=== PATIENT | female | born 1965 | race African-American/Black ===

== ENCOUNTER 2017-06-30 21:13 | Emergency (ER) | payer MEDICARE, MEDICAID ==
[2017-06-30 21:48] LABS: #Eosinphils 0.2 thou/uL (0.0-0.7); #Monocytes 0.4 thou/uL (0.11-0.59); #Neutrophils 2.7 thou/uL (1.40-6.50); %Basophils 0.3 % (0.0-1.0); %Eosinophils 4.9 % (0.0-10.0); %Lymphocytes 23.3 % (21.0-51.0); %Monocytes 9.6 % (0.0-10.0); Hematocrit 41.7 % (36.0-47.0); Mean Platelet Volume 7.8 fL (7.4-10.4); Red Blood Cell (RBC) Count 4.63 mill/uL (4.20-5.40); White Blood Cell (WBC) Count 4.4 thou/uL (4.8-10.8)
[2017-06-30 22:09] LABS: ALT (SGPT) 7 U/L (8-55); AST (SGOT) 13 U/L (5-34); Alkaline Phosphatase 116 U/L (40-150); Anion Gap 10 mmol/L (10-20); BUN (Urea Nitrogen) 16 mg/dL (9.8-20.1); Bilirubin, Total 0.4 mg/dL (0.2-1.2); Calc. Creatinine Clearance 0 mL/min (70-130); Calcium 8.7 mg/dL (7.8-10.44); Carbon Dioxide 29 mmol/L (22-29); Chloride 106 mmol/L (98-107); Estimated GFR-MDRD 90; Lipase 15 U/L (8-78); Protein, Total 7.6 g/dL (6.0-8.3)
[2017-06-30] MEDS ORDERED: Ondansetron HCl/PF 4 MG/2 ML Vial ONE (22:32)
--- NOTE | 2017-06-30 22:36 | RAD ---
PA AND LATERAL CHEST: Indication: History of cough, vomiting up food. The patient is afebrile. Comparison: 05-10-16 FINDINGS: The cardiomegaly and perihilar fullness is stable. The perihilar interstitial opacities are stable. No new airspace consolidation or pleural effusion is evident. Dual-lead pacemaker overlying the left chest wall is stable. No acute osseous abnormality is evident. IMPRESSION: 1. No acute abnormality demonstrated. 2. Chronic findings as above. POS: SHANE
[2017-06-30 22:39] LABS: Troponin I Less than 0.010 ng/mL (< 0.028)
[2017-06-30 23:20] LABS: Bilirubin Negative (Negative); Blood, Urine Negative (Negative); Glucose, Urine (Dipstick) Negative (Negative); Ketone, Urine Negative (Negative); Nitrite Positive (Negative); Protein, Urine (Dipstick) Negative (Neg-Trace)
[2017-06-30 23:24] LABS: Bacteria/HPF 3+ HPF (None Seen); Hyaline Casts/LPF 0-3 HYALINE CAST LPF (0-3 Hyaline); RBC/HPF 0-3 HPF (0-3); Squamous Epithelial 0-3 HPF (0-3)
[2017-06-30] MEDS ORDERED: Clopidogrel Bisulfate 75 MG TAB ONE (23:25)
[2017-06-30] MEDS ORDERED: methylPREDNISolone Sod Succ/PF 125 MG/2 ML VIAL ONE (23:25)
== END 2017-07-01 00:32 | disposition home or self-care (01) ==
LOC: ERS 21:13
DX: J44.9 Chronic obstructive pulmonary disease, unspecified (principal); N39.0 Urinary tract infection, site not specified; E11.9 Type 2 diabetes mellitus without complications; E66.9 Obesity, unspecified; I11.0 Hypertensive heart disease with heart failure; I50.9 Heart failure, unspecified; F41.9 Anxiety disorder, unspecified; F32.9 Major depressive disorder, single episode, unspecified; Z87.891 Personal history of nicotine dependence; Z79.899 Other long term (current) drug therapy
CPT/HCPCS: 36415; 71020; 80053; 81003; 81015; 81025; 82553; 83690; 83880; 84484; 85025; 93005; 96374; 96375; J2405; J2930; J7620

== ENCOUNTER 2018-06-25 21:23 | Inpatient (IN) | payer MEDICARE, MEDICAID ==
[2018-06-25] MEDS ORDERED: Albuterol Sulfate 2.5 mg/3 ml Neb ONE ×2 (21:48)
[2018-06-25 22:03] LABS: Actual Bicarbonate (HCO3a) 26.3 mEq/L (22-28); Analyzer IN Cardio ER; Base Excess (BEa) 0.6 mEq/L (-2.0 to +3.0); CO2 Tension 46.7 mmHg (35.0-45.0); Calcium, Ionized 1.14 mmol/L (1.12-1.30); Carboxyhemoglobin (COHb) 0.6 gm% (0.0-3.0); Hemoglobin (Hb) 12.1 g/dL (12.0-16.0); O2 Tension (PaO2) 166.7 mmHg (80.0-100.0); Potassium - ABG Lab 3.61 mmol/L (3.70-5.30); pH, Arterial 7.37 (7.35-7.45)
[2018-06-25 22:08] LABS: Puncture Site RRA
[2018-06-25 22:09] LABS: ALV-art Gradient -75.345 (0-20)
[2018-06-25] MEDS ORDERED: Dexamethasone 4 mg/ml Vial ONE (22:12)
[2018-06-25 22:13] LABS: Hemoglobin 12.4 g/dL (12.0-16.0); Mean Corpuscular HGB CONC 31.5 g/dL (32.0-36.0); Mean Corpuscular Hemoglobin 26.5 pg (27.0-31.0); Mean Corpuscular Volume 84.3 fL (78.0-98.0); Mean Platelet Volume 7.6 fL (7.4-10.4); Platelet Count 388 thou/uL (130-400); RBC Distribution Width 14.7 % (11.5-14.5); Red Blood Cell (RBC) Count 4.67 mill/uL (4.20-5.40); White Blood Cell (WBC) Count 5.8 thou/uL (4.8-10.8)
[2018-06-25] MEDS ORDERED: Magnesium 2 GM/50 ML BAG (IN WATER) ONE (22:24)
[2018-06-25 22:37] LABS: Band 1 % (5-11); Lymphocytes 15 % (21-51); MDiff Complete? YES; Monocytes 6 % (0-10); Neutrophil 78 % (42-75)
[2018-06-25 22:39] LABS: ALT (SGPT) Less than 7 U/L (8-55); AST (SGOT) 14 U/L (5-34); Albumin 3.7 g/dL (3.5-5.0); Alkaline Phosphatase 86 U/L (40-150); Anion Gap 17 mmol/L (10-20); BUN (Urea Nitrogen) 13 mg/dL (9.8-20.1); Bilirubin, Total 0.7 mg/dL (0.2-1.2); CK (CPK) 73 U/L (29-168); Calc. Creatinine Clearance 0 mL/min (70-130); Calcium 9.2 mg/dL (7.8-10.44); Carbon Dioxide 28 mmol/L (22-29); Chloride 98 mmol/L (98-107); Estimated GFR-MDRD Greater than 90; Globulin 4.5 g/dL (2.4-3.5); Glucose 90 mg/dL (70-105); Lipase 9 U/L (8-78); Potassium 3.8 mmol/L (3.5-5.1); Protein, Total 8.2 g/dL (6.0-8.3); Sodium 139 mmol/L (136-145)
[2018-06-25 22:42] LABS: CKMB 2.3 ng/mL (0-6.6); Troponin I Less than 0.010 ng/mL (< 0.028)
--- NOTE | 2018-06-25 23:36 | RAD ---
PORTABLE AP CHEST X-RAY 06/25/18 HISTORY: Dyspnea. Difficulty breathing. Nausea. Chest pain. COMPARISON: 06/30/17. FINDINGS: A dual lead left subclavian cardiac pacemaking device remains in place and unchanged in position. Car diac silhouette is magnified by projection but is probably mildly enlarged. Again noted are increase in perihilar interstitial and alveolar opacities. Findings may potentially be chronic in origin, but element of mild pulmonary edema or infectious process is a possibility. There is greater patchy paren chymal changes in the retrocardiac region of the left lung base. No pleural effusion is seen. There h as been no interval change compared to prior studies. IMPRESSION: Increase in perihilar interstitial and alveolar opacities, greater in the retrocardiac region left nati ng base. Findings could be related to infectious process or asymmetric pulmonary edema. Followup to rita gomez is recommended. POS: JOSE
[2018-06-25] MEDS ORDERED: Bisacodyl 5 MG TAB PO PRN (23:51)
[2018-06-25] MEDS ORDERED: Acetaminophen 650 MG Suppository PR PRN (23:51)
[2018-06-26] MEDS ORDERED: Furosemide 20 MG/2 ML VIAL SLOW IVP SCH (00:15)
--- NOTE | 2018-06-26 00:31 | HP ---
PRIMARY CARE PROVIDER: None. CHIEF COMPLAINT: Shortness of breath. HISTORY OF PRESENT ILLNESS: Ms. Enrique is a pleasant 53-year-old lady was seen at [facility] on 06/25/2018. She reports that she was nauseous yesterday. Today, she started having shortness of breath. She den ies any vomiting. She reports cough for the last 3 days that is productive of whitish to yellow sput um. She also reports having fevers at home. She denies any chest pain. She reports that shortness of breath is worse with exertion. She also reports body aches. REVIEW OF SYSTEMS: All other systems reviewed and found to be negative. PAST MEDICAL HISTORY: Diabetes mellitus type 2, she reports that it resolved with weight loss, COPD, obesity, hypertension, asthma, congestive heart failure and Wernicke's encephalopathy. PAST SURGICAL HISTORY: Tonsillectomy, pacemaker, section x2, and gastric bypass surgery in 07/2016. PSYCHIATRIC HISTORY: Anxiety and depression. SOCIAL HISTORY: The patient is an ex-smoker. She denies alcohol use or recreational drug use. FAMILY HISTORY: Significant for asthma and diabetes mellitus. ALLERGIES: IBUPROFEN. CURRENT MEDICATIONS: Need to be clarified, patient appears to be on ferrous sulfate 325 mg 2 times a day, vitamin D3 1000 units daily, vitamin B12 1000 mcg daily and woman's multivitamins 1 tablet jaspal y. PHYSICAL EXAMINATION: GENERAL: On examination, Ms. Enrique is awake and alert, not in acute distress. VITAL SIGNS: Blood pressure is 126/69, pulse 82, respiratory rate 18, and oxygen saturation 94% on r oom air. She is afebrile. EYES: No scleral icterus. No conjunctival pallor. ENT: Moist mucosal membranes, no oropharyngeal erythema or exudates. NECK: Supple, nontender, trachea is midline. RESPIRATORY: Accessory muscles of breathing are not active. Chest wall movements are symmetric bila terally. LUNGS: Examination reveals diffuse expiratory wheeze. CARDIOVASCULAR: S1 and S2 are heard, regular. Peripheral pulses palpable. No pericardial rub, no c arotid bruit. NEUROLOGIC: Cranial nerves II-XII intact. Deep tendon reflexes are 2+. MUSCULOSKELETAL: Power is 5/5 in all 4 extremities. SKIN: No rashes or subcutaneous nodules. She has a trace bilateral lower extremity edema. LYMPHATIC: No cervical lymphadenopathy. PSYCHIATRIC: Normal mood, normal affect, patient is oriented to person, place, and time. IMAGING DATA AND LABORATORY DATA: Ms. Enrique' labs and investigations were reviewed. I reviewed her electrocardiogram, which shows atrial sensed ventricular paced rhythm. I also reviewed her chest x- ray, which shows perihilar interstitial and alveolar opacities. She has a normal white count, normal hemoglobin, normal platelet count, normal electrolytes, normal creatinine and unremarkable liver pro file. Lipase is normal. Troponin I and BNP are normal. Arterial blood gases show pH 7.37, pCO2 of 46.7 and pO2 166.7. ASSESSMENT AND PLAN: Ms. Enrique is a pleasant 53-year-old lady who was seen at [facility] on 06/26/2018. Her problem list includes: 1. Acute hypercapnic respiratory failure: Most likely secondary to chronic obstructive pulmonary di sease exacerbation. She will be admitted to the hospital for further management. 2. Chronic obstructive pulmonary disease exacerbation: Patient will be treated with oxygen, steroid s, bronchodilators, and antibiotics. She has received levofloxacin in the emergency room, which I wi ll continue. Pulmonology Service will be consulted for opinion and help with management. 3. Congestive heart failure. The patient has a history of congestive heart failure, but does not ap pear to be in congestive heart failure at this time. She has a normal BNP. We will have her pacemak er interrogated to find out her volume status. 4. We will also give her a 1 time dose of furosemide, given the chest x-ray findings. 5. Hypertension: Patient has a history of hypertension, but is not on any antihypertensives at this time. Her hypertension is controlled at this time. I will continue to monitor vital signs and add hypertension medications if needed. 6. Diabetes mellitus. The patient does not appear to have any diabetes at this time. She is not on any medications and her random blood glucose was 90. LEVEL OF RISK: High. LEVEL OF COMPLEXITY: High.
[2018-06-26 01:35] VITALS: BMI 28.3
[2018-06-26 04:02] LABS: Bilirubin Moderate (Negative); Blood, Urine Small (Negative); Clarity CLOUDY (Clear); Glucose, Urine (Dipstick) Negative (Negative); Leukocyte Small (Negative); Nitrite Negative (Negative); Protein, Urine (Dipstick) Negative (Neg-Trace)
[2018-06-26 04:04] LABS: Bacteria/HPF 4+ HPF (None Seen); Pathc Cast-AUWi Flag 0.29 (0-2.49); RBC/HPF 0-3 HPF (0-3)
[2018-06-26 04:22] LABS: Hyaline Casts/LPF NONE SEEN LPF (0-3 Hyaline); Renal Epithelial None Seen HPF (0-3); Transitional Epithelial NONE SEEN HPF (0-3); Trichomonas/HPF 1+ HPF (None Seen)
[2018-06-26 05:52] LABS: #Basophils 0.1 thou/uL (0.0-0.2); #Lymphocytes 0.2 thou/uL (1.20-3.40); #Neutrophils 5.7 thou/uL (1.40-6.50); %Basophils 1.2 % (0.0-1.0); %Eosinophils 0.1 % (0.0-10.0); %Lymphocytes 3.5 % (21.0-51.0); %Monocytes 0.7 % (0.0-10.0); %Neutrophils 94.5 % (42.0-75.0); Hemoglobin 12.2 g/dL (12.0-16.0); Mean Corpuscular HGB CONC 30.6 g/dL (32.0-36.0); Mean Corpuscular Hemoglobin 25.7 pg (27.0-31.0); Mean Platelet Volume 7.7 fL (7.4-10.4); Platelet Count 400 thou/uL (130-400); RBC Distribution Width 14.8 % (11.5-14.5); Red Blood Cell (RBC) Count 4.77 mill/uL (4.20-5.40)
--- NOTE | 2018-06-26 06:09 | PDOC.EVN ---
Event Note - Event Note Event Note: Urinalysis positive for trichomonas. Send uring sample for GC/Chlamydia testing , check HIV serology, administer 2 gm metronidazole.
[2018-06-26 06:24] LABS: Anion Gap 18 mmol/L (10-20); BUN (Urea Nitrogen) 12 mg/dL (9.8-20.1); Calc. Creatinine Clearance 91 mL/min (70-130); Calcium 8.7 mg/dL (7.8-10.44); Carbon Dioxide 26 mmol/L (22-29); Chloride 98 mmol/L (98-107); Estimated GFR-MDRD 87; Glucose 242 mg/dL (70-105); Potassium 4.5 mmol/L (3.5-5.1); Sodium 137 mmol/L (136-145)
[2018-06-26] MEDS ORDERED: metroNIDAZOLE 500 MG TAB PO SCH (07:00)
[2018-06-26 07:05] LABS: HIV (1/2) Antibody/Antigen Non-Reactive (NonReactive); HIV 1/2 INDEX 0.14 S/CO (<1.00)
[2018-06-26] MEDS: Enoxaparin Sodium 40 MG/0.4 ML SYRINGE SC SCH (08:07)
--- NOTE | 2018-06-26 12:02 | CON ---
DATE OF CONSULTATION: 06/26/2018 CONSULTING PHYSICIAN: Cody tomas. REASON FOR CONSULTATION: Shortness of breath. The consultation encompassed 70 minutes time. Of that time, greater than 50% was spent with the conchita ent and/or in the patient's room in the hospital. HISTORY OF PRESENT ILLNESS: This is a 53-year-old female who I have not seen in quite some time. Дмитрий shukla has a history of chronic persistent asthma and COPD. She was hospitalized yesterday with increasin g shortness of breath and productive cough. She tells me that she has had a hard time swallowing and keeping food down. She thinks this is an effect from previous gastric bypass surgery. PAST MEDICAL HISTORY: 1. Diabetes mellitus type 2. 2. Chronic obstructive pulmonary disease/asthma. 3. Congestive heart failure. 4. Warneke encephalopathy. 5. Hypertension. PAST SURGICAL HISTORY: 1. Tonsillectomy. 2. Gastric bypass. 3. x2. 4. Pacemaker placement. SOCIAL HISTORY: Quit smoking some time ago. Does not use alcohol or recreational drugs. FAMILY MEDICAL HISTORY: Remarkable for asthma and diabetes. ALLERGIES: IBUPROFEN. MEDICATIONS PRIOR TO ADMISSION: Cholecalciferol, aspirin, vitamin B12, Tudorza Pressair, Ventolin, f olate, Lasix, multivitamin, Protonix. REVIEW OF SYSTEMS: Twelve point review of systems otherwise negative except for substantial weight l oss. PHYSICAL EXAMINATION: VITAL SIGNS: Temperature 98.0, pulse 65, respiratory is 20, O2 sat 96% on 2 liters, blood pressure 1 17/73. GENERAL: She is awake and alert and in no profound distress. She is walking around the halls withou t difficulty. HEENT: Pupils react. Sclerae icteric. Oropharynx clear. NECK: No adenopathy or JVD. LUNGS: Mild end expiratory wheezing bilaterally. CARDIOVASCULAR: S1, S2 regular. ABDOMEN: Soft, nontender, nondistended. EXTREMITIES: No clubbing, cyanosis, or edema. LABORATORY DATA: ABG - pH 7.37, pCO2 46, pO2 of 166. White blood cell count 6, hematocrit 40, plate let count 400. Sodium 137, potassium 4.5, chloride 98, CO2 26, BUN 12, creatinine 0.8, glucose 242. HIV test was nonreactive. Chest x-ray shows cardiomegaly. There is a pacemaker in place. No acute infiltrates are identified. ASSESSMENT: Asthma/chronic obstructive pulmonary disease with exacerbation. RECOMMENDATIONS: 1. Schedule nebulization treatments as you are doing. 2. Steroid therapy 3. Antibiotics. 4. Low flow oxygen as needed.
[2018-06-27] MEDS: Acetaminophen 325 MG TAB PO PRN ×2 (07:08→20:36)
[2018-06-27] MEDS: Enoxaparin Sodium 40 MG/0.4 ML SYRINGE SC SCH (09:03)
--- NOTE | 2018-06-27 11:23 | EKG ---
Test Reason : DYSPNEA Blood Pressure : / mmHG Vent. Rate : 061 BPM Atrial Rate : 061 BPM P-R Int : 170 ms QRS Dur : 200 ms QT Int : 526 ms P-R-T Axes : 030 -78 099 degrees QTc Int : 529 ms Atrial-sensed ventricular-paced rhythm Abnormal ECG Confirmed by DARIEL WEI, DB ([id number]), editorial intern LUIS ENRIQUE FLORES ([id number]) on 06/27/2018 11:22:44 AM Referred By: MD VIEIRA Confirmed By:DB VIEIRA MD
[2018-06-27] MEDS: Ondansetron PF 4 MG/2 ML Vial IVP PRN ×2 (14:10→20:36)
--- NOTE | 2018-06-27 14:16 | PRG ---
DATE OF SERVICE: 06/27/2018. SUBJECTIVE: She states that she does not feel any from yesterday. She is still short of breat h and still having some stomach issues. PHYSICAL EXAMINATION: VITAL SIGNS: Temperature 97.8, pulse 68, respiration 16, O2 sat 95% on room air, blood pressure 114/ 75. HEENT: Unremarkable. NECK: No JVD. LUNGS: She has diffuse mild end expiratory wheezing. CARDIAC: S1 and S2 regular. ABDOMEN: Soft. EXTREMITIES: No edema. LABORATORY DATA: Micro shows no growth to date. No labs were obtained today. ASSESSMENT: 1. Asthma/chronic obstructive pulmonary disease with exacerbation. 2. Nausea and vomiting. RECOMMENDATIONS: 1. Continue the antibiotic, steroids and breathing treatments. 2. We would consider GI involvement for evaluation of the patient's persistent nausea and vomiting.
--- NOTE | 2018-06-27 16:41 | PDOC.PN ---
- Subjective Encounter Start Date: 06/27/18 Encounter Start Time: 10:30 Subjective: pt up in bed complains of nausea and abd cramping - Objective Vital Signs & Weight: Vital Signs (12 hours) Temp Pulse Resp BP Pulse Ox 06/27/18 14:40 71 14 95 06/27/18 09:48 68 16 95 06/27/18 08:00 95 06/27/18 07:38 97.8 F 65 16 114/75 100 06/27/18 06:08 68 18 95 Weight Admit Weight 160 lb 0.889 oz Weight 160 lb 0.889 oz I&O: 06/26/18 06/27/18 06/28/18 06:59 06:59 06:59 Intake Total 1680 Balance 1680 Result Diagrams: 06/26/18 04:45 06/26/18 04:45 Phys Exam - Physical Examination Respiratory: wheezing present Cardiovascular: RRR, no significant murmur, no rub, gallop, irregular Gastrointestinal: soft, non-tender, no distention, positive bowel sounds Musculoskeletal: no edema, pulses present, edema present Dx/Plan (1) Acute respiratory failure with hypoxia and hypercapnia Code(s): J96.01 - ACUTE RESPIRATORY FAILURE WITH HYPOXIA; J96.02 - ACUTE RESPIRATORY FAILURE WITH HYPERCAPNIA Status: Acute (2) Diabetes mellitus type 2 Code(s): E11.9 - TYPE 2 DIABETES MELLITUS WITHOUT COMPLICATIONS Status: Chronic (3) S/P gastric bypass Code(s): Z98.84 - BARIATRIC SURGERY STATUS Status: Chronic (4) hypertension Status: Active - Plan pt on steroids and abx, still has some wheezing -: will order ruq ultrasound to make sure her gallbladder is not causing any -: problems. * . Review of Systems - Review of Systems Respiratory: negative: Cough, Dry, Shortness of Breath, Hemoptysis, SOB with Excertion, Pleuritic Pain, Sputum, Wheezing Cardiovascular: negative: chest pain, palpitations, orthopnea, paroxysmal nocturnal dyspnea, edema, light headedness, other Gastrointestinal: negative: Nausea, Vomiting, Abdominal Pain, Diarrhea, Constipation, Melena, Hematochezia, Other - Medications/Allergies Allergies/Adverse Reactions: Allergies Allergy/AdvReac Type Severity Reaction Status Date / Time ibuprofen Allergy "TRIGGERS Verified 06/26/18 01:33 HER ASTHMA" Medications: Current Medications Acetaminophen (Tylenol) 650 mg PO Q4H PRN PRN Reason: Headache/Fever/Mild Pain (1-3) Last Admin: 06/27/18 07:08 Dose: 650 mg Acetaminophen (Tylenol) 650 mg [place] Q4H PRN PRN Reason: Headache/Fever/Mild Pain (1-3) Albuterol/Ipratropium (Duoneb) 3 ml NEB [id number] [facility] Last Admin: 06/27/18 14:40 Dose: 3 ml Bisacodyl (Dulcolax) 10 mg PO DAILYPRN PRN PRN Reason: Constipation Last Admin: 06/27/18 06:15 Dose: 10 mg Cholecalciferol (Vitamin D3) 1,[address] [facility] Cyanocobalamin (Vitamin B-12) 1,[address] [facility] Enoxaparin Sodium (Lovenox) [address] [facility] Last Admin: 06/27/18 09:03 Dose: 40 mg Ferrous Sulfate (Feosol) [address] [facility] Furosemide (Lasix) [address] [facility] Levofloxacin 750 mg/ Device 150 mls @ 100 mls/hr IVPB Q24HR [facility] Last Admin: 06/26/18 23:50 Dose: 150 mls Iron/Minerals/Multivitamins (Theragran M) [address] [facility] Ondansetron HCl (Zofran) 4 mg IVP Q6H PRN PRN Reason: Nausea/Vomiting Last Admin: 06/27/18 14:10 Dose: 4 mg Pantoprazole Sodium (Protonix) [address] [facility] Prednisone (Prednisone) 40 mg PO QAM-[facility]
--- NOTE | 2018-06-27 16:52 | PDOC.PN ---
- Subjective Encounter Start Date: 06/26/18 Encounter Start Time: 11:30 Subjective: pt up in bed no complains - Objective Vital Signs & Weight: Vital Signs (12 hours) Temp Pulse Resp BP Pulse Ox 06/27/18 14:40 71 14 95 06/27/18 09:48 68 16 95 06/27/18 08:00 95 06/27/18 07:38 97.8 F 65 16 114/75 100 06/27/18 06:08 68 18 95 Weight Admit Weight 160 lb 0.889 oz Weight 160 lb 0.889 oz I&O: 06/26/18 06/27/18 06/28/18 06:59 06:59 06:59 Intake Total 1680 Balance 1680 Result Diagrams: 06/26/18 04:45 06/26/18 04:45 Dx/Plan (1) Acute respiratory failure with hypoxia and hypercapnia Code(s): J96.01 - ACUTE RESPIRATORY FAILURE WITH HYPOXIA; J96.02 - ACUTE RESPIRATORY FAILURE WITH HYPERCAPNIA Status: Acute (2) Diabetes mellitus type 2 Code(s): E11.9 - TYPE 2 DIABETES MELLITUS WITHOUT COMPLICATIONS Status: Chronic (3) S/P gastric bypass Code(s): Z98.84 - BARIATRIC SURGERY STATUS Status: Chronic (4) hypertension Status: Active - Plan will continue steroids -: will continue abx -: pulm consulted * . Review of Systems - Review of Systems Respiratory: negative: Cough, Dry, Shortness of Breath, Hemoptysis, SOB with Excertion, Pleuritic Pain, Sputum, Wheezing Cardiovascular: negative: chest pain, palpitations, orthopnea, paroxysmal nocturnal dyspnea, edema, light headedness, other Gastrointestinal: negative: Nausea, Vomiting, Abdominal Pain, Diarrhea, Constipation, Melena, Hematochezia, Other - Medications/Allergies Allergies/Adverse Reactions: Allergies Allergy/AdvReac Type Severity Reaction Status Date / Time ibuprofen Allergy "TRIGGERS Verified 06/26/18 01:33 HER ASTHMA" Medications: Current Medications Acetaminophen (Tylenol) 650 mg PO Q4H PRN PRN Reason: Headache/Fever/Mild Pain (1-3) Last Admin: 06/27/18 07:08 Dose: 650 mg Acetaminophen (Tylenol) 650 mg [place] Q4H PRN PRN Reason: Headache/Fever/Mild Pain (1-3) Albuterol/Ipratropium (Duoneb) 3 ml NEB [id number] [facility] Last Admin: 06/27/18 14:40 Dose: 3 ml Bisacodyl (Dulcolax) 10 mg PO DAILYPRN PRN PRN Reason: Constipation Last Admin: 06/27/18 06:15 Dose: 10 mg Cholecalciferol (Vitamin D3) 1,000 units PO BID [facility] Cyanocobalamin (Vitamin B-12) 1,500 mcg PO DAILY [facility] Enoxaparin Sodium (Lovenox) 40 mg SC 0900 [facility] Last Admin: 06/27/18 09:03 Dose: 40 mg Ferrous Sulfate (Feosol) 325 mg PO DAILY [facility] Furosemide (Lasix) 20 mg PO DAILY [facility] Levofloxacin 750 mg/ Device 150 mls @ 100 mls/hr IVPB Q24HR [facility] Last Admin: 06/26/18 23:50 Dose: 150 mls Iron/Minerals/Multivitamins (Theragran M) 1 tab PO DAILY [facility] Ondansetron HCl (Zofran) 4 mg IVP Q6H PRN PRN Reason: Nausea/Vomiting Last Admin: 06/27/18 14:10 Dose: 4 mg Pantoprazole Sodium (Protonix) 40 mg PO BID [facility] Prednisone (Prednisone) 40 mg PO QAM-[facility]
--- NOTE | 2018-06-27 20:45 | ULT ---
SONOGRAM RIGHT UPPER QUADRANT 06/27/18 HISTORY: Right upper quadrant pain. FINDINGS: Echogenic stones are apparent within the dependent portion of the gallbladder lumen. Common duct is 0 .3 cm. Liver unremarkable without focal mass or intrahepatic biliary dilatation. No free fluid. IMPRESSION: Cholelithiasis. No evidence of acute biliary obstruction. POS: [facility]
[2018-06-27] MEDS ORDERED: ACLIDINIUM BROMIDE 400 MCG INH SCH (21:00)
[2018-06-28] MEDS: Ferrous Sulfate 325 MG TAB PO SCH (08:19)
[2018-06-28] MEDS: Multivitamin W/ Minerals 1 TAB PO SCH (08:19)
[2018-06-28] MEDS: Cyanocobalamin (Vitamin B-12) 1,000 MCG TAB PO SCH (08:20)
[2018-06-28] MEDS: Furosemide 20 MG TAB PO SCH (08:21)
[2018-06-28] MEDS: predniSONE 20 MG TAB PO SCH (08:21)
[2018-06-28] MEDS: Enoxaparin Sodium 40 MG/0.4 ML SYRINGE SC SCH (08:22)
[2018-06-28] MEDS ORDERED: Aspirin 81 mg Enteric Coated Tablet PO SCH (09:00)
[2018-06-28] MEDS: cefTRIAXone\\ROCEPHIN 1 GM in Sodium Chloride 0.9% 100 ML IVPB SCH (11:27)
--- NOTE | 2018-06-28 12:15 | PRG ---
DATE OF SERVICE: 06/28/2018 SUBJECTIVE: She feels somewhat better, had no acute complaints. PHYSICAL EXAMINATION: VITAL SIGNS: Temperature is 98.4, pulse 69, respirations 18, O2 sat 97%, blood pressure 107/64. HEENT: Unremarkable. NECK: No JVD. LUNGS: She has a very mild end expiratory wheeze. CARDIOVASCULAR: S1 and S2 regular. ABDOMEN: Soft. EXTREMITIES: No edema. ASSESSMENT: Asthma/chronic obstructive pulmonary disease with exacerbation. PLAN: She is probably back to her baseline from a pulmonary standpoint, I would advocate changing he r over to oral antibiotics. She can go home on her breathing treatments and tapered prednisone.
[2018-06-28 12:22] LABS: Chlamydia by PCR Not Detected (NotDetected); GC by PCR Not Detected (NotDetected)
--- NOTE | 2018-06-28 15:38 | PDOC.PN ---
- Subjective Encounter Start Date: 06/28/18 Encounter Start Time: 13:00 Subjective: pt up in chair feels much better - Objective Vital Signs & Weight: Vital Signs (12 hours) Temp Pulse Resp BP Pulse Ox 06/28/18 09:34 69 18 97 06/28/18 08:00 97 06/28/18 07:31 98.4 F 65 16 107/64 98 06/28/18 05:58 65 14 96 06/28/18 03:53 98.3 F 65 16 94/57 L 98 Weight Admit Weight 160 lb 0.889 oz Weight 160 lb 0.889 oz I&O: 06/27/18 06/28/18 06/29/18 06:59 06:59 06:59 Intake Total 1680 640 Balance 1680 640 Result Diagrams: 06/26/18 04:45 06/26/18 04:45 Phys Exam - Physical Examination Neck: no nodes, no JVD, supple, full ROM Respiratory: wheezing present Cardiovascular: RRR, no significant murmur, no rub, gallop, irregular Gastrointestinal: soft, non-tender, no distention, positive bowel sounds Dx/Plan (1) Acute respiratory failure with hypoxia and hypercapnia Code(s): J96.01 - ACUTE RESPIRATORY FAILURE WITH HYPOXIA; J96.02 - ACUTE RESPIRATORY FAILURE WITH HYPERCAPNIA Status: Acute (2) Diabetes mellitus type 2 Code(s): E11.9 - TYPE 2 DIABETES MELLITUS WITHOUT COMPLICATIONS Status: Chronic (3) S/P gastric bypass Code(s): Z98.84 - BARIATRIC SURGERY STATUS Status: Chronic (4) hypertension Status: Active (5) Nausea & vomiting Code(s): R11.2 - NAUSEA WITH VOMITING, UNSPECIFIED Status: Acute - Plan pt's ruq indicates cholelithiasis -: pt feels better today -: will continue current treatment -: pt on steroids and abx * . Review of Systems - Review of Systems Cardiovascular: negative: chest pain, palpitations, orthopnea, paroxysmal nocturnal dyspnea, edema, light headedness, other Gastrointestinal: negative: Nausea, Vomiting, Abdominal Pain, Diarrhea, Constipation, Melena, Hematochezia, Other Genitourinary: negative: Dysuria, Frequency, Incontinence, Hematuria, Retention , Other - Medications/Allergies Allergies/Adverse Reactions: Allergies Allergy/AdvReac Type Severity Reaction Status Date / Time ibuprofen Allergy "TRIGGERS Verified 06/26/18 01:33 HER ASTHMA" Medications: Current Medications Acetaminophen (Tylenol) 650 mg PO Q4H PRN PRN Reason: Headache/Fever/Mild Pain (1-3) Last Admin: 06/27/18 20:36 Dose: 650 mg Acetaminophen (Tylenol) 650 mg [place] Q4H PRN PRN Reason: Headache/Fever/Mild Pain (1-3) Albuterol/Ipratropium (Duoneb) 3 ml NEB [id number] [facility] Last Admin: 06/28/18 14:00 Dose: Not Given Bisacodyl (Dulcolax) 10 mg PO DAILYPRN PRN PRN Reason: Constipation Last Admin: 06/27/18 06:15 Dose: 10 mg Cholecalciferol (Vitamin D3) 1,000 units PO BID [facility] Last Admin: 06/28/18 08:20 Dose: 1,000 units Cyanocobalamin (Vitamin B-12) 1,500 mcg PO DAILY [facility] Last Admin: 06/28/18 08:20 Dose: 1,500 mcg Enoxaparin Sodium (Lovenox) 40 mg SC 0900 [facility] Last Admin: 06/28/18 08:22 Dose: 40 mg Ferrous Sulfate (Feosol) 325 mg PO DAILY [facility] Last Admin: 06/28/18 08:19 Dose: 325 mg Furosemide (Lasix) 20 mg PO DAILY [facility] Last Admin: 06/28/18 08:21 Dose: 20 mg Ceftriaxone Sodium 1 gm/ (Sodium Chloride) 100 mls @ 200 mls/hr IVPB Q24HR [facility] Last Admin: 06/28/18 11:27 Dose: 100 mls Iron/Minerals/Multivitamins (Theragran M) 1 tab PO DAILY [facility] Last Admin: 06/28/18 08:19 Dose: 1 tab Ondansetron HCl (Zofran) 4 mg IVP Q6H PRN PRN Reason: Nausea/Vomiting Last Admin: 06/27/18 20:36 Dose: 4 mg Pantoprazole Sodium (Protonix) 40 mg PO BID [facility] Last Admin: 06/28/18 08:21 Dose: 40 mg Prednisone (Prednisone) 40 mg PO QAM-[facility] Last Admin: 06/28/18 08:21 Dose: 40 mg
[2018-06-29 05:39] LABS: #Monocytes 0.8 thou/uL (0.11-0.59); #Neutrophils 4.9 thou/uL (1.40-6.50); %Basophils 0.4 % (0.0-1.0); %Eosinophils 0.6 % (0.0-10.0); %Lymphocytes 15.2 % (21.0-51.0); %Monocytes 11.4 % (0.0-10.0); %Neutrophils 72.5 % (42.0-75.0); Hemoglobin 11.6 g/dL (12.0-16.0); Mean Corpuscular HGB CONC 29.3 g/dL (32.0-36.0); Mean Corpuscular Hemoglobin 25.3 pg (27.0-31.0); Mean Corpuscular Volume 86.3 fL (78.0-98.0); Mean Platelet Volume 7.4 fL (7.4-10.4); Platelet Count 454 thou/uL (130-400); RBC Distribution Width 15.1 % (11.5-14.5); Red Blood Cell (RBC) Count 4.57 mill/uL (4.20-5.40); White Blood Cell (WBC) Count 6.8 thou/uL (4.8-10.8)
[2018-06-29 05:47] LABS: Anion Gap 11 mmol/L (10-20); BUN (Urea Nitrogen) 28 mg/dL (9.8-20.1); Calc. Creatinine Clearance 89 mL/min (70-130); Calcium 8.8 mg/dL (7.8-10.44); Carbon Dioxide 31 mmol/L (22-29); Chloride 101 mmol/L (98-107); Estimated GFR-MDRD 85; Glucose 90 mg/dL (70-105); Sodium 139 mmol/L (136-145)
[2018-06-29] MEDS: Furosemide 20 MG TAB PO SCH (08:10)
[2018-06-29] MEDS: predniSONE 20 MG TAB PO SCH (08:10)
[2018-06-29] MEDS: Enoxaparin Sodium 40 MG/0.4 ML SYRINGE SC SCH (08:10)
[2018-06-29] MEDS: Ferrous Sulfate 325 MG TAB PO SCH (08:11)
[2018-06-29] MEDS: Cyanocobalamin (Vitamin B-12) 1,000 MCG TAB PO SCH (08:11)
[2018-06-29] MEDS: Multivitamin W/ Minerals 1 TAB PO SCH (08:11)
--- NOTE | 2018-06-29 10:05 | PRG ---
DATE OF SERVICE: 06/29/2018 She feels better today, had no acute complaints. PHYSICAL EXAMINATION: VITAL SIGNS: Temperature is 97.6, pulse 69, respirations 18, O2 sat 96% on room air, blood pressure 82/54. HEENT: Unremarkable. NECK: No adenopathy or JVD. LUNGS: Mild end expiratory wheeze. CARDIOVASCULAR: S1 and S2 regular. ABDOMEN: Soft. EXTREMITIES: No edema. LABORATORY DATA: White blood count 6.8, hematocrit 39.4, platelet count 454. Sodium 139, potassium 4, chloride 101, CO2 31, BUN 20, creatinine 0.8, glucose 90. ASSESSMENT: Asthma with exacerbation. PLAN: Asthma is clinically stable. She can go home on a steroid taper. Continue her breathing lesli tments at home.
[2018-06-29] MEDS: cefTRIAXone\\ROCEPHIN 1 GM in Sodium Chloride 0.9% 100 ML IVPB SCH (10:59)
[2018-06-29 18:40] VITALS: BP 109/72; TEMP 98.6
--- NOTE | 2018-06-30 04:21 | DIS ---
DATE OF ADMISSION: 06/25/2018 DATE OF DISCHARGE: 06/29/2018 DISCHARGE DIAGNOSES: 1. Acute hypoxic hypercapnic respiratory failure, resolving. 2. Asthma exacerbation, improved. 3. Diabetes mellitus, type 2, stable. 4. Hypertension. 5. Nausea and vomiting, resolved. CONSULTATIONS: Dr. Nunez with pulmonology service. PERTINENT LABORATORY AND X-RAY FINDINGS: Basic metabolic profile within normal limits. BNP 52. Lip ase 9. CBC within normal limits. Chlamydia DNA by PCR not detected on 06/26/2018. HIV 1 and 2 anti gen antibody nonreactive on 06/25/2018. Neisseria gonorrhea DNA by PCR not detected. Blood cultures x2 dated on 06/25/2018 showed no growth at 48 hours. Influenza A and B antigen dated on 06/25/2018 negative. Urine culture dated on 06/26/2018 showed greater than 100,000 colonies of E. coli. HOSPITAL COURSE: Patient was initially admitted after presenting with increasing shortness of breath . Patient was initially managed for asthma/chronic obstructive pulmonary disease exacerbation with b ronchodilator therapy as well as IV Solu-Medrol. Patient was slow to clinically improve with general supportive pulmonary supportive management. Patient was weaned off oxygen supplementation, maintain ing O2 saturations in the mid 90% range on room air. Patient was noted with a urinary tract infectio n with E. coli species treated with IV Rocephin. Patient achieved baseline functional status, transi tioning to oral prednisone, and continuing bronchodilator therapy. Patient overall clinically stabil ized on 06/29/2018. I have examined the patient at the time of discharge and discussed followup inst ructions. Patient verbalized understanding and agreement ready for discharge on 06/29/2018. DISCHARGE MEDICATIONS: 1. Tudorza Pressair 400 mcg inhaled b.i.d. 2. Albuterol HFA 2 puffs inhaled q.4 hours p.r.n. 3. Enteric-coated aspirin 81 mg p.o. daily. 4. Vitamin D3 of 1000 units p.o. b.i.d. 5. Vitamin B12 of 1500 mcg p.o. daily. 6. Multivitamin 1 tab p.o. daily. 7. Lasix 20 mg p.o. daily. 8. Iron 65 mg p.o. daily. 9. Prednisone 20 mg two tabs p.o. daily x3 days, followed by 1 tab p.o. daily x3 days, followed by h halfway a tab p.o. daily x3 days. 10. Omnicef 300 mg p.o. b.i.d. x3 days. FOLLOWUP: Patient to follow up with her primary printing sales representative, Dr. Srinivasa Nunez and to call his off ice for appointment time and date. CONDITION ON DISCHARGE: Stable. ACTIVITY: Ad marita. DIET: Heart healthy. CODE STATUS: FULL. DISPOSITION: Home on 06/29/2018.
== END 2018-06-29 19:35 | disposition home or self-care (01) | DRG 189 ==
LOC: ERS 21:23 → T4-A 22:38
PROVIDERS: ADMIT Internal Medicine; ATTEND Internal Medicine
DX: J96.01 Acute respiratory failure with hypoxia (principal); J44.1 Chronic obstructive pulmonary disease with (acute) exacerbation; J45.901 Unspecified asthma with (acute) exacerbation; E11.9 Type 2 diabetes mellitus without complications; E66.9 Obesity, unspecified; I11.0 Hypertensive heart disease with heart failure; I50.9 Heart failure, unspecified; F32.9 Major depressive disorder, single episode, unspecified; F41.9 Anxiety disorder, unspecified; Z87.891 Personal history of nicotine dependence; Z98.84 Bariatric surgery status; Z95.0 Presence of cardiac pacemaker; Z88.6 Allergy status to analgesic agent; Z79.899 Other long term (current) drug therapy
CPT/HCPCS: 36415; 71045; 76705; 80048; 80053; 81003; 81015; 82553; 82805; 83605; 83690; 83880; 84484; 85025; 87040; 87077; 87086; 87186; 87389; 87491; 87591; 87804; 90471; 90686; 93005; 94640; 96365; 96375; G0008; J0696; J1100; J1650; J1940; J1956; J2405; J2920; J7050; J7506; J7611; J7620

== ENCOUNTER 2018-09-16 23:11 | Inpatient (IN) | payer MEDICARE, MEDICAID ==
[2018-09-17] LABS: #Eosinphils 0.2 thou/uL (0.0-0.7); #Lymphocytes 0.8 thou/uL (1.20-3.40); #Monocytes 0.3 thou/uL (0.11-0.59); #Neutrophils 2.9 thou/uL (1.40-6.50); %Basophils 0.2 % (0.0-1.0); %Eosinophils 3.9 % (0.0-10.0); %Monocytes 6.9 % (0.0-10.0); Hemoglobin 12.5 g/dL (12.0-16.0); Mean Corpuscular Hemoglobin 25.7 pg (27.0-31.0); Platelet Count 207 thou/uL (130-400); RBC Distribution Width 16.5 % (11.5-14.5); Red Blood Cell (RBC) Count 4.87 mill/uL (4.20-5.40); White Blood Cell (WBC) Count 4.2 thou/uL (4.8-10.8)
[2018-09-17 00:22] LABS: ALT (SGPT) 104 U/L (8-55); AST (SGOT) 373 U/L (5-34); Albumin 3.7 g/dL (3.5-5.0); Alkaline Phosphatase 181 U/L (40-150); Anion Gap 15 mmol/L (10-20); BUN (Urea Nitrogen) 25 mg/dL (9.8-20.1); Bilirubin, Total 0.7 mg/dL (0.2-1.2); Calc. Creatinine Clearance 0 mL/min (70-130); Calcium 8.8 mg/dL (7.8-10.44); Carbon Dioxide 23 mmol/L (22-29); Chloride 108 mmol/L (98-107); Estimated GFR-MDRD Greater than 90; Globulin 3.2 g/dL (2.4-3.5); Glucose 85 mg/dL (70-105); Lipase 23 U/L (8-78); Protein, Total 6.9 g/dL (6.0-8.3); Sodium 141 mmol/L (136-145)
[2018-09-17] MEDS ORDERED: Morphine 4 MG/ML VIAL SLOW IVP PRN ×3 (02:49→17:07)
[2018-09-17 03:22] VITALS: BMI 31.6
[2018-09-17] MEDS: Sodium Chloride 0.9% 1,000 ML IV SCH ×2 (03:40→19:20)
[2018-09-17 07:09] LABS: #Lymphocytes 0.4 thou/uL (1.20-3.40); #Monocytes 0.5 thou/uL (0.11-0.59); #Neutrophils 5.9 thou/uL (1.40-6.50); %Eosinophils 0.6 % (0.0-10.0); %Lymphocytes 6.5 % (21.0-51.0); %Monocytes 6.5 % (0.0-10.0); %Neutrophils 86.4 % (42.0-75.0); Hemoglobin 12.4 g/dL (12.0-16.0); Mean Corpuscular HGB CONC 30.3 g/dL (32.0-36.0); Mean Corpuscular Hemoglobin 25.3 pg (27.0-31.0); Mean Corpuscular Volume 83.3 fL (78.0-98.0); Mean Platelet Volume 9.2 fL (7.4-10.4); Platelet Count 199 thou/uL (130-400); RBC Distribution Width 16.5 % (11.5-14.5); White Blood Cell (WBC) Count 6.9 thou/uL (4.8-10.8)
[2018-09-17 07:34] LABS: ALT (SGPT) 669 U/L (8-55); AST (SGOT) 1574 U/L (5-34); Albumin 3.4 g/dL (3.5-5.0); Alkaline Phosphatase 291 U/L (40-150); Anion Gap 14 mmol/L (10-20); BUN (Urea Nitrogen) 23 mg/dL (9.8-20.1); Bilirubin, Total 1.2 mg/dL (0.2-1.2); Calc. Creatinine Clearance 119 mL/min (70-130); Calcium 8.5 mg/dL (7.8-10.44); Carbon Dioxide 22 mmol/L (22-29); Chloride 107 mmol/L (98-107); Estimated GFR-MDRD Greater than 90; Globulin 3.1 g/dL (2.4-3.5); Glucose 110 mg/dL (70-105); Lipase 13 U/L (8-78); Potassium 4.9 mmol/L (3.5-5.1); Protein, Total 6.5 g/dL (6.0-8.3); Sodium 138 mmol/L (136-145)
--- NOTE | 2018-09-17 08:33 | ULT ---
PRELIMINARY REPORT/[facility]/EMERGENTY AFTER-HOURS PROCEDURE US Abdomen Limited, Right Upper Quadrant EXAM DATE/TIME: 09/17/2018 1:07 AM CLINICAL HISTORY: 53 years old, female; Pain and signs and symptoms; Nausea and vomiting; Abdominal pain; Other: Epigas tric to ruq pain TECHNIQUE: Real-time ultrasound of the abdomen with image documentation. Examination was focused on the right up per quadrant. COMPARISON: Dictated report of CT abdomen and pelvis October 02, 2014 but no comparison images available. FINDINGS: Liver: There is mild hepatomegaly with liver length is 17.6 cm. There is a slightly echogenic well ci rcumscribed lesion in the right lobe of the liver measuring a maximum of 1.8 cm which was previously described on the CT abdomen and pelvis report and appears indeterminant but could represent a hemangioma for example. Gallbladder: The gallbladder is moderately distended with sludge and find layering calculi consistent with cholelithiasis but no abnormal gallbladder wall thickening or pericholecystic fluid. However a positive sonographic De Dios sign was elicited therefore acute cholecystitis is suspected. Common bile duct: Normal. No stones. No dilation. Pancreas: The tail of the pancreas is obscured but the remainder of the pancreas appears unremarkable . Right kidney: Normal. No mass. No hydronephrosis. IMPRESSION: 1. There is a slightly echogenic well-circumscribed lesion in the right lobe of the liver measuring a maximum of 1.8 cm which was previously described on the CT abdomen and pelvis report and appears ind eterminant but could represent a hemangioma for example. 2. The gallbladder is moderately distended with sludge and find layering calculi consistent with chol elithiasis but no abnormal gallbladder wall thickening or pericholecystic fluid. However a positive s onographic De Dios sign was elicited therefore acute cholecystitis is suspected. Thank you for allowing us to participate in the care of your patient. Dictated and Authenticated by: Ferddy Phelps MD 09/17/2018 2:09 AM Central Time ([place] & [place]) FINAL REPORT GALLBLADDER ULTRASOUND: HISTORY: Right upper quadrant pain. FINDINGS: Real-time imaging of the right upper quadrant shows a slightly distended gallbladder with echogenic f oci, some of which shadows, consistent with a combination of sludge and small stones. The common rosa maria t is 2-3 mm. The liver parenchyma is somewhat heterogeneous. There is a hyperechoic area within the right lobe me asuring approximately 1.3 cm transverse dimension which has also been noted on a previous 06/27/2018 study. It appears stable. Review is also made of a 10/02/2014 CT of the abdomen and pelvis and a subt le density was present at that time not definitively changed since the prior exam. The right kidney is normal in size and not obstructed. IMPRESSION: 1. Multiple cholelithiasis with small stones and sludge within the gallbladder. The common duct is within normal limits. 2. Approximately 1.3 x 1.8 cm echogenic lesion within the right lobe of the liver which is felt to b e stable from a 2014 CT study, possibly a hemangioma. 3. There was a positive ultrasound De Dios's sign. 4. This report is in agreement with the temporary report issued by [facility]. POS: OFF
[2018-09-17] MEDS ORDERED: CEFAZOLIN 2 GM/50 ML BAG ONE (12:43)
[2018-09-17] MEDS ORDERED: Bupivacaine/Epinephrine 0.25% 30 ML VIAL ONE (14:10)
[2018-09-17] MEDS ORDERED: Iothalamate Meglumine 60% 50 ML VIAL FS ONE (14:10)
[2018-09-17] MEDS ORDERED: Fentanyl 250 MCG/5 ML VIAL ONE (14:24)
--- NOTE | 2018-09-17 14:44 | HP ---
CHIEF COMPLAINT: Right upper quadrant abdominal pain, cholelithiasis. HISTORY OF PRESENT ILLNESS: The patient is a 53-year-old black female. She is well known to myself from a prior laparoscopic gastric bypass. This was performed in July of 2014. At that time, she weighed about 375 pounds and had a fairly severe diabetes as well as a series of other medical problems. She had medical noncompliance after surgery and was not taking her vitamins or her proton pump inhibitor. This resulted in anastomotic ulcers as well as severe vitamin B1 deficiency which actually resulted in Wernicke encephalopathy. Surprisingly, she seemed to bounce back from this after she had vitamin supplementation. She previously had diabetes, but tells me that she has been on no diabetic medication for several years. In the emergency room, she had laboratory and radiologic studies performed. Her bilirubin level was 0.7, but her transaminases were elevated and her alkaline phosphatase was 181. Her lipase level was normal. Followup labs this morning revealed that her bilirubin was up to 1.2. Transaminases had gone up higher and her alkaline phosphatase was 291. Her gallbladder ultrasound revealed cholelithiasis with no gallbladder wall thickening or ductal dilatation. She was initially admitted to the service of Dr. Marrero, who transferred her to my service once she realized that this is the patient I had previously cared for. PAST MEDICAL HISTORY: 1. History of morbid obesity. Her weight was 375 pounds. She tells me that her weight currently is 170 pounds. Her previous BMI was 66.5. Her BMI currently is about 31. 2. History of COPD and asthma. 3. History of hypertension (on no current medications for this). 4. History of diabetes mellitus. PAST SURGICAL HISTORY: 1. x2. 2. Pacemaker placement. 3. Laparoscopic gastric bypass. MEDICATIONS: The patient tells me that she is currently not taking any medications other than her vitamins, which she does not seem to take as she is supposed to. ALLERGIES: NO KNOWN DRUG ALLERGIES. PERSONAL AND SOCIAL HISTORY: She is single with 2 children. She lives with her mother. She does not smoke or drink alcohol. Her primary care physicians are the [facility] (residency program), but she does not believe she has seen anybody there in a year or so. FAMILY HISTORY: Noncontributory. PHYSICAL EXAMINATION: VITAL SIGNS: Temperature is 99, pulse is 89, blood pressure is 96/59. GENERAL: She is a well-developed, well-nourished, pleasant black female, resting in bed, in no acute distress. She is alert and oriented x3. HEAD, EYES, EARS, NOSE, AND THROAT: Unremarkable. NECK: Supple without mass or tenderness. LUNGS: Clear to auscultation throughout. CARDIAC: Regular rate and rhythm without murmur. ABDOMEN: Soft, nontender, and nondistended. Previous laparoscopic incisions are well healed. EXTREMITIES: Unremarkable. ASSESSMENT AND PLAN: The patient with symptomatic cholelithiasis. The rise in her liver function tests is somewhat concerning. I would recommend an intraoperative cholangiogram. Since she has had a gastric bypass, retrograde access to her bile duct would be difficult, and therefore would consider intraoperative common duct exploration depending upon findings. Since her liver function tests are elevated, I would recommend watching her here in the hospital at least until tomorrow to make sure that these are stable. Job ID: [id number]
[2018-09-17] MEDS ORDERED: Ondansetron PF 4 MG/2 ML Vial ONE (15:18)
[2018-09-17] MEDS ORDERED: Lidocaine 1% PF 5 ML VIAL ONE (15:18)
[2018-09-17] MEDS ORDERED: PROPOFOL 200 MG/20 ML VIAL ONE (15:18)
[2018-09-17] MEDS ORDERED: Glycopyrrolate 0.2 MG/ML 5 ML SYRINGE ONE (15:18)
[2018-09-17] MEDS ORDERED: Rocuronium Bromide 10 MG/ML (10ML VIAL) ONE (15:18)
[2018-09-17] MEDS ORDERED: Albuterol Sulfate HFA (OR ONLY) ONE (16:04)
[2018-09-17] MEDS ORDERED: Fentanyl 100 MCG/2 ML VIAL ONE ×2 (16:36→17:10)
[2018-09-17] MEDS ORDERED: Ondansetron HCl/PF 4 MG/2 ML Vial IVP PRN (16:39)
[2018-09-17] MEDS ORDERED: Promethazine HCl 25 MG/ML VIAL IM PRN ×2 (16:39→17:07)
[2018-09-17] MEDS ORDERED: Promethazine HCl 25 MG/ML VIAL SLOW IVP PRN (16:39)
--- NOTE | 2018-09-17 16:41 | RAD ---
INTRAOPERATIVE CHOLANGIOGRAM FLUOROSCOPY: Date: 09/17/18 HISTORY: Cholecystitis. FINDINGS/IMPRESSION: Intraoperative fluoroscopy provided for cholangiogram as performed by Dr. Marrero. Spot fluoroscopic images show laparoscopic hardware over the right upper quadrant. Metallic clips over the gallbladder fossa. Contrast opacification of the nondilated cystic duct and common bile duct. Contrast extends in to the duodenum. No filling defects are demonstrated. Fluoro Time: 22 seconds. POS: [facility]
[2018-09-17] MEDS ORDERED: Dextrose 50% Abboject 50 ML SYRINGE SLOW IVP PRN (17:07)
[2018-09-17] MEDS ORDERED: Mag-Al 1200 mg/1200 mg/30 ML UDCUP PO PRN (17:07)
[2018-09-17] MEDS ORDERED: Dextrose 5% in Water 1,000 ML IV PRN (17:07)
[2018-09-17] MEDS ORDERED: hydrALAZINE 20 MG/ML VIAL SLOW IVP PRN (17:07)
[2018-09-17] MEDS ORDERED: Acetaminophen 325 MG TAB PO PRN (17:07)
[2018-09-17] MEDS ORDERED: Calcium Carbonate 500 MG ChewTAB PO PRN (17:07)
[2018-09-17] MEDS ORDERED: Ondansetron PF 4 MG/2 ML Vial IVP PRN (17:07)
[2018-09-17] MEDS ORDERED: Benzonatate 100 MG CAP PO PRN ×2 (19:56)
[2018-09-17] MEDS: Lactated Ringer's 1,000 ML IV SCH (20:11)
[2018-09-17] MEDS: Famotidine/PF 20 mg/2ml Vial SLOW IVP SCH (20:12)
[2018-09-17] MEDS: HYDROcodone/Acetaminophen 10/325 mg Tablet PO PRN (20:12)
[2018-09-17] MEDS: Famotidine 20 MG TAB PO SCH (20:12)
[2018-09-18] MEDS: Lactated Ringer's 1,000 ML IV SCH (05:32)
[2018-09-18 07:51] LABS: #Lymphocytes 0.5 thou/uL (1.20-3.40); #Monocytes 0.5 thou/uL (0.11-0.59); #Neutrophils 9.3 thou/uL (1.40-6.50); %Basophils 0.3 % (0.0-1.0); %Eosinophils 0.3 % (0.0-10.0); %Lymphocytes 4.9 % (21.0-51.0); %Monocytes 5.2 % (0.0-10.0); %Neutrophils 89.3 % (42.0-75.0); Hemoglobin 12.4 g/dL (12.0-16.0); Mean Corpuscular HGB CONC 29.5 g/dL (32.0-36.0); Mean Corpuscular Hemoglobin 25.5 pg (27.0-31.0); Mean Corpuscular Volume 86.5 fL (78.0-98.0); Platelet Count 173 thou/uL (130-400); RBC Distribution Width 16.6 % (11.5-14.5); Red Blood Cell (RBC) Count 4.87 mill/uL (4.20-5.40); White Blood Cell (WBC) Count 10.5 thou/uL (4.8-10.8)
[2018-09-18 07:59] LABS: ALT (SGPT) 380 U/L (8-55); AST (SGOT) 361 U/L (5-34); Albumin 3.2 g/dL (3.5-5.0); Alkaline Phosphatase 267 U/L (40-150); Anion Gap 12 mmol/L (10-20); BUN (Urea Nitrogen) 17 mg/dL (9.8-20.1); Calc. Creatinine Clearance 115 mL/min (70-130); Calcium 8.8 mg/dL (7.8-10.44); Carbon Dioxide 26 mmol/L (22-29); Chloride 103 mmol/L (98-107); Estimated GFR-MDRD Greater than 90; Globulin 3.2 g/dL (2.4-3.5); Glucose 93 mg/dL (70-105); Lipase Less than 4 U/L (8-78); Potassium 4.7 mmol/L (3.5-5.1); Protein, Total 6.4 g/dL (6.0-8.3); Sodium 136 mmol/L (136-145)
[2018-09-18] MEDS ORDERED: Multivit, Therapeutic 1 TAB PO SCH (09:00)
[2018-09-18] MEDS: Famotidine/PF 20 mg/2ml Vial SLOW IVP SCH (09:53)
[2018-09-18] MEDS: Famotidine 20 MG TAB PO SCH (09:53)
[2018-09-18] MEDS: HYDROcodone/Acetaminophen 10/325 mg Tablet PO PRN (10:17)
[2018-09-18 13:05] LABS: ALT (SGPT) 312 U/L (8-55); AST (SGOT) 261 U/L (5-34); Albumin 3.1 g/dL (3.5-5.0); Alkaline Phosphatase 234 U/L (40-150); Bilirubin, Direct 1.1 mg/dL (0.1-0.3); Bilirubin, Total 1.5 mg/dL (0.2-1.2); Protein, Total 6.1 g/dL (6.0-8.3)
[2018-09-18 13:46] VITALS: BP 100/66; TEMP 97.7
--- NOTE | 2018-09-19 11:01 | DIS ---
DATE OF ADMISSION: 09/17/2018 DATE OF DISCHARGE: 09/18/2018 ADMISSION DIAGNOSIS: Cholelithiasis, biliary colic. DISCHARGE DIAGNOSIS: Cholelithiasis, biliary colic. OPERATIONS PERFORMED: Laparoscopic cholecystectomy with intraoperative cholangiogram. ADMISSION HISTORY: The patient is a 53-year-old black female. She is status post gastric bypass four and half years ago. She presented to the emergency room complaining of abdominal pain with nausea and vomiting. She had evidence of cholelithiasis and slightly elevated liver functions. HOSPITAL COURSE: She was taken to the operating room the day after admission, the laparoscopic cholecystectomy with cholangiogram was obtained. Cholangiogram was negative. She has been stable since her surgery. Her bilirubin had gone up to 2.0 this morning after her surgery. She was therefore observed few more hours and her diet was advanced during that time. Her followup bilirubin this afternoon is 1.5. She has a benign exam and is hemodynamically stable. She is stable for discharge. I will see her back in my office in 10 to 14 days. There are no new prescriptions at time of discharge. Job ID: [id number]
--- NOTE | 2018-09-19 21:05 | OP ---
DATE OF PROCEDURE: 09/17/2018 PREOPERATIVE DIAGNOSIS: Symptomatic cholelithiasis with liver function test elevation. POSTOPERATIVE DIAGNOSIS: Symptomatic cholelithiasis with liver function test elevation. OPERATION PERFORMED: Laparoscopic cholecystectomy with intraoperative cholangiogram. ANESTHESIA: General endotracheal. INDICATIONS FOR PROCEDURE: The patient is a 53-year-old black female. She is known to myself from bariatric surgery a little over four years ago. She presented to the emergency room, complaining of abdominal pain with nausea and vomiting. She had ultrasound-proven cholelithiasis. Laparoscopic cholecystectomy was recommended. Her transaminases are significantly elevated. Her bilirubin, well within normal limits, had gone up from the time of admission to today. Therefore, a cholangiogram was recommended. DESCRIPTION OF OPERATION: Informed consent was obtained. The patient was taken to the operating room, where general endotracheal anesthesia was obtained with the patient in supine position. Abdomen was prepped with ChloraPrep and draped in sterile fashion. Local anesthetic was infiltrated using 0.25% Marcaine with epinephrine. Access was initially gained in the right upper quadrant. A 5-mm incision was created and Veress needle was passed into the peritoneal cavity. Pneumoperitoneum was established using carbon dioxide up to pressure of 15 mmHg. A 5-mm trocar port was passed through the same incision. Laparoscopic camera was passed through this port. Under direct vision, I selected a site for the 11 mm port supraumbilical. She had very redundant tissue across her abdomen secondary to her 200-pound weight loss that she had experienced. An 11-mm port was placed supraumbilical and camera was replaced through this port. Two additional 5 mm ports were placed. These were in atypical locations because she still has a significantly enlarged liver that seemed to be below the level of the costal margin. Therefore, changing the angles of approach for the laparoscopic instruments. The gallbladder was grasped and retracted in a cephalad direction. The apex of the gallbladder was grasped, retracted laterally and inferiorly. Careful dissection was carried out to the apex of the gallbladder to identify the cystic duct and cystic artery. The artery was divided between clips, leaving 2 on the side to remain within the abdomen. The duct was dissected circumferentially. Cholangiogram was obtained using the Taut cholangiocath. This demonstrated normal ductal anatomy with no evidence of filling defect. There was easy emptying of the contrast into the duodenum. The cholangiocath was removed and the duct was doubly clipped and divided. The gallbladder was dissected from the gallbladder fossa of the liver using electrocautery and removed through the 11 mm port. The fascia was closed with 0 Vicryl sutures using a GraNee needle. The right upper quadrant was inspected and found to be hemostatic. The area was thoroughly irrigated. All irrigant was aspirated. All ports and instruments were removed under direct vision. Pneumoperitoneum was carefully evacuated. 0.25% Marcaine with epinephrine was infiltrated at each port site. Skin edges were approximated with 4-0 Monocryl subcuticular suture and Dermabond was placed externally. There were no complications. The patient tolerated the procedure well, and was taken to the recovery room in stable condition. Job ID: [id number]
== END 2018-09-18 16:00 | disposition home or self-care (01) | DRG 419 ==
LOC: ERS 23:11 → SURG A 09-17 01:30 → OBSVTOIN 09-17 17:07
PROVIDERS: ADMIT Surgery; ATTEND Surgery
PROC: 0FT44ZZ Resection of Gallbladder, Percutaneous Endoscopic Approach (ICD-10-PCS; principal; 2018-09-17)
PROC: BF13YZZ Fluoroscopy of Gallbladder and Bile Ducts using Other Contrast (ICD-10-PCS; 2018-09-17)
DX: K80.70 Calculus of gallbladder and bile duct without cholecystitis without obstruction (principal); E11.9 Type 2 diabetes mellitus without complications; J44.9 Chronic obstructive pulmonary disease, unspecified; R79.89 Other specified abnormal findings of blood chemistry; I10 Essential (primary) hypertension; Z98.84 Bariatric surgery status; Z95.0 Presence of cardiac pacemaker
CPT/HCPCS: 36415; 47531; 76705; 80053; 83690; 85025; 88304; J1610; J2001; J2270; J2405; J2704; J3010; J7620; Q9961

== ENCOUNTER 2019-01-07 00:09 | Inpatient (IN) | payer MEDICARE, MEDICAID ==
[2019-01-07] MEDS ORDERED: Albuterol Sulfate 2.5 mg/3 ml Neb ONE (00:26)
[2019-01-07] MEDS ORDERED: Dexamethasone 10 MG/ML VIAL ONE (00:28)
[2019-01-07] MEDS ORDERED: Magnesium 2 GM/50 ML BAG (IN WATER) ONE (00:28)
[2019-01-07 00:43] LABS: #Eosinphils 0.1 thou/uL (0.0-0.7); #Lymphocytes 1.4 thou/uL (1.20-3.40); #Monocytes 0.6 thou/uL (0.11-0.59); #Neutrophils 2.4 thou/uL (1.40-6.50); %Basophils 0.9 % (0.0-1.0); %Eosinophils 2.8 % (0.0-10.0); %Lymphocytes 31.2 % (21.0-51.0); %Neutrophils 52.1 % (42.0-75.0); Hemoglobin 11.6 g/dL (12.0-16.0); Mean Corpuscular HGB CONC 29.8 g/dL (32.0-36.0); Mean Corpuscular Hemoglobin 25.3 pg (27.0-31.0); Mean Corpuscular Volume 84.9 fL (78.0-98.0); Mean Platelet Volume 8.3 fL (7.4-10.4); Platelet Count 217 thou/uL (130-400); RBC Distribution Width 15.4 % (11.5-14.5); Red Blood Cell (RBC) Count 4.57 mill/uL (4.20-5.40); White Blood Cell (WBC) Count 4.6 thou/uL (4.8-10.8)
[2019-01-07 00:47] LABS: Actual Bicarbonate (HCO3a) 28.6 mEq/L (22-28); Analyzer IN Cardio ER; Base Excess (BEa) 1.6 mEq/L (-2.0 to +3.0); CO2 Tension 55.8 mmHg (35.0-45.0); Calcium, Ionized 1.15 mmol/L (1.12-1.30); Hemoglobin (Hb) 12.1 g/dL (12.0-16.0); O2 Tension (PaO2) 67.2 mmHg (80.0-100.0); Potassium - ABG Lab 3.75 mmol/L (3.70-5.30); pH, Arterial 7.33 (7.35-7.45)
[2019-01-07 00:51] LABS: Puncture Site RRA
[2019-01-07 01:07] LABS: ALT (SGPT) 7 U/L (8-55); AST (SGOT) 13 U/L (5-34); Albumin 3.4 g/dL (3.5-5.0); Alkaline Phosphatase 103 U/L (40-150); Anion Gap 10 mmol/L (10-20); BUN (Urea Nitrogen) 14 mg/dL (9.8-20.1); Bilirubin, Total 0.5 mg/dL (0.2-1.2); Calc. Creatinine Clearance 0 mL/min (70-130); Calcium 8.2 mg/dL (7.8-10.44); Carbon Dioxide 28 mmol/L (22-29); Chloride 108 mmol/L (98-107); Estimated GFR-MDRD Greater than 90; Globulin 2.8 g/dL (2.4-3.5); Glucose 109 mg/dL (70-105); Lipase 12 U/L (8-78); Potassium 4.2 mmol/L (3.5-5.1); Protein, Total 6.2 g/dL (6.0-8.3); Sodium 142 mmol/L (136-145)
[2019-01-07 01:29] LABS: CK (CPK) 152 U/L (29-168)
--- NOTE | 2019-01-07 01:41 | PDOC.FPRHP ---
- History of Present Illness Chief Complaint: SOB History of Present Illness: This is a 53 yo AA F who presented to the ER via EMS for SOB. The patient has a PMH significant for CHF, COPD, and asthma. Patient reports cough that started 2- 3 days ago. She reports SOB and wheezing that started yesterday. She reports her cough has been productive of green sputum. Patient uses 2L NC O2 at home. She reports using her breathing treatments at home w/ minimal to no relief. Patient endorses having to sleep sitting up and using multiple pillows at night. She endorses some swelling in her LE more than usual. She states she has not been walking around much the past few days. She reports decreased appetite. She endorses chills but denies fever. She denies chest pain, palpitations, abdominal pain. She endorses wheezing. Denies nasal congestion, headache, muscle aches. Per EMS, patient satting 92% on RA. En route, patient given 125 mg solumedrol, duonebs x 3, IVF. Putting 99% while receiving duonebs. Symptoms severity initially rated at 10/10 and then 6/10 after duonebs. ED Course: Decadron 10mg IV, 50mL mag IV, 5mg albuterol, 3mL duoneb, 750mg levaquin IV, 1L NaCl - Allergies/Adverse Reactions Allergies Allergy/AdvReac Type Severity Reaction Status Date / Time ibuprofen Allergy "TRIGGERS Verified 01/07/19 04:04 HER ASTHMA" - Home Medications Medication Instructions Recorded Confirmed Type Cyanocobalamin (Vitamin B-12) 1,500 mcg PO DAILY 03/07/15 09/17/18 History [Vitamin B-12] Cholecalciferol (Vitamin D3) 1 tab PO BID 04/01/15 09/17/18 History [Vitamin D] Albuterol Sulfate [Ventolin HFA] 2 puff INH Q4HR PRN 08/29/15 09/17/18 History Furosemide [Lasix] 20 mg PO DAILY 08/29/15 09/17/18 History Pantoprazole [Protonix] 40 mg PO BID #60 tab 08/30/15 09/17/18 Rx Folic Acid/Multivit-Min/Lutein 1 tablet PO DAILY 11/01/09/17/18 History [Multi-Vitamin Gummies] Iron Bis-Gly/FA/C/B12/CA/Succ 65 tablet PO DAILY 02/05/16 09/17/18 History [Iron 21/] - History PMHx: DM type II, COPD, obesity, HTN, asthma, CHF w/ EF 60%, wernickes encephalpathy, anxiety/depression PSHx: pacemaker, csection x 2, gastric bypass Jul 2016 FHx: non contributory Social: former smoker - smoked 25+ yrs 1pack/day, quit 3-4yrs ago; occasionally drinks alcohol, denies drug use - Review of Systems General: reports: fever/chills, fatigue. denies: weight/appetite/sleep changes , night sweats ENT: denies: nasal congestion, rhinorrhea Respiratory: reports: cough, shortness of breath. denies: congestion, exercise intolerance Cardiovascular: reports: edema, paroxysmal nocturnal dyspnea, orthopnea. denies : chest pain, palpitation Gastrointestinal: denies: nausea, vomiting, diarrhea, constipation, abdominal pain Genitourinary: denies: dysuria Skin: denies: rashes, lesions Musculoskeletal: denies: tenderness, stiffness, swelling Neurological: reports: weakness. denies: numbness, syncope, seizure Psychological: reports: anxiety, depression - Vital signs BP: 121/82, Pulse: 95, Resp: 20, Temp: 98.2 (Oral), Pain: 0, O2 sat: 93 on 2L Oxygen, Time: 01/07/2019 00:18. Weight: 72.57kg BP: 133/83, Pulse: 95, Resp: 28, Pain: 0, O2 sat: 98 on 2L Oxygen, Time: 2018 01:42. - Physical Exam Constitutional: NAD, awake, alert and oriented, well developed HEENT: normocephalic and atraumatic, PERRLA, EOMI, grossly normal vision, grossly normal hearing, MMM Neck: supple, FROM, trachea midline Chest: no-tender to palpation, no lesions Heart: RRR, normal S1/S2, no murmurs/rubs/gallops, pulses present -Heart: +1 edema to level of shins b/l -Lungs: Crackles in b/l lung bases, expiratory wheeze heard diffusely Abdomen: soft, non-tender, bowel sounds present, no masses/distention Musculoskeletal: normal structure, normal tone, ROM grossly normal Neurological: no focal deficit Skin: no rash/lesions, good turgor, capillary refill <2 seconds Heme/Lymphatic: no unusual bruising or bleeding Psychiatric: normal mood and affect FMR H&P: Results - Labs Result Diagrams: 01/07/19 03:43 01/07/19 03:43 Lab results: WBC 4.6 thou/uL (4.8-10.8) L 01/07/19 00:31 Hgb 11.6 g/dL (12.0-16.0) L 01/07/19 00:31 Hct 38.8 % (36.0-47.0) 01/07/19 00:31 MCV 84.9 fL (78.0-98.0) 01/07/19 00:31 Plt Count 217 thou/uL (130-400) 01/07/19 00:31 Neutrophils % 52.1 % (42.0-75.0) 01/07/19 00:31 ABG pH 7.33 (7.35-7.45) L 01/07/19 00:37 ABG pCO2 55.8 mmHg (35.0-45.0) H 01/07/19 00:37 ABG pO2 67.2 mmHg (80.0-100.0) L 01/07/19 00:37 Sodium 142 mmol/L (136-145) 01/07/19 00:31 Potassium 4.2 mmol/L (3.5-5.1) 01/07/19 00:31 Chloride 108 mmol/L (98-107) H 01/07/19 00:31 Carbon Dioxide 28 mmol/L (22-29) 01/07/19 00:31 BUN 14 mg/dL (9.8-20.1) 01/07/19 00:31 Creatinine 0.74 mg/dL (0.6-1.1) 01/07/19 00:31 Glucose 109 mg/dL (70-105) H 01/07/19 00:31 Lactic Acid 1.4 mmol/L (0.5-2.2) 01/07/19 00:31 Calcium 8.2 mg/dL (7.8-10.44) 01/07/19 00:31 Total Bilirubin 0.5 mg/dL (0.2-1.2) 01/07/19 00:31 AST 13 U/L (5-34) 01/07/19 00:31 ALT 7 U/L (8-55) L 01/07/19 00:31 Alkaline Phosphatase 103 U/L (40-150) 01/07/19 00:31 Creatine Kinase 152 U/L (29-168) 01/07/19 00:31 B-Natriuretic Peptide 283.9 pg/mL (0-100) H 01/07/19 00:31 Serum Total Protein 6.2 g/dL (6.0-8.3) 01/07/19 00:31 Albumin 3.4 g/dL (3.5-5.0) L 01/07/19 00:31 Lipase 12 U/L (8-78) 01/07/19 00:31 FMR H&P: A/P - Problem List (1) hypertension Current Visit: No Status: Active (2) Depression Current Visit: No Status: Acute Code(s): F32.9 - MAJOR DEPRESSIVE DISORDER, SINGLE EPISODE, UNSPECIFIED (3) COPD with asthma Current Visit: No Status: Chronic (4) S/P gastric bypass Current Visit: No Status: Chronic Code(s): Z98.84 - BARIATRIC SURGERY STATUS - Plan Acute hypercapnic respiratory distress 2/2 COPD exacerbation - Continue prednisone therapy x 5 days - RADHA duoneb q4hr and PRN albuterol - Procalcitonin pending to determine need for continue abx. Levaquin x1 in ED - Keep O2 sats between 88-92%, supplemental O2 as need, patient currently at baseline home O2 of 2L NC Possible CHF exacerbation - Last TTE >5 years ago was WNL. - CXR and exam concerning for fluid overload - Will give 1 dose of IV lasix and see how patient responds - TTE pending - Trend BNP DM type II - obtained from hx, patient denies - A1C pending - SS, ACHS HTN - home meds, will continue to monitor vs Dispo: admit to med obs, < 2midnights Code: FULL Diet: HH DVT ppx: lovenox Case discussed with Dr. Medina FMR H&P: Upper Level - Pertinent history 53 yo AAF PMH COPD, 3rd degree heart block s/p pacemaker placement. Presents with 3 day hx cough and 1 day history of worsening SOB. States she ran out of neb treatments which prompted her to call EMS. Receive solumendol 125 mg en route and duoneb x3. Baseline O2 2L NC. Sees Dr. Nunez. ER: labs, EKG, CXR, decadron, magnesium, duoneb, albuterol, levaquin - Pertinent findings Vitals: WNL, on baseline oxygen GEN: NAD, sleeping CV: RRR, No murmur Pulm: diffuse wheezing, bibasilar crackles, Ext: 1+ edema to garcia bilaterally Labs: BNP 283.9 ABG 7.33/55.8/67.2 CXR: Pulmonary vascular congestion EKG: ventricular paced rhythm, no ST changes. - Plan Date/Time: 01/07/19 1189 I, Awais Taylor MD, have evaluated this patient and agree with findings/plan as outlined by sport intern resident. Pertinent changes/additions are listed here. 1. Acute hypercapnic respiratory distress 2/2 COPD exacerbation: continue prednisone therapy, RADHA duoneb q4hr and PRN albuterol, procalcitonin to determine need for continue abx. Already received levaquin 2. Possible CHF exacerbation: Last TTE >5 years ago was WNL. XR and exam concerning for fluid overload. Give IV lasix and check TTE. Trend BMP 3. Chronic problems per sport intern note Diet: HH PPX: Lovenox CODE: FULL Dispo: obs, tele, <2 midnights. Addendum - Attending - Attending Attestation Date/Time: 01/07/19 9921 I personally evaluated the patient and discussed the management with Dr. Mcbride. I agree with the History, Examination, Assessment and Plan documented above with any addition or exceptions noted below.
[2019-01-07] MEDS ORDERED: Albuterol Sulfate 2.5 mg/3 ml Neb NEB PRN (01:45)
[2019-01-07] MEDS ORDERED: Acetaminophen 650 MG Suppository PR PRN (01:45)
[2019-01-07] MEDS ORDERED: Acetaminophen 325 MG TAB PO PRN (01:45)
[2019-01-07] MEDS ORDERED: Ondansetron ODT 4 MG TAB PO PRN (01:45)
[2019-01-07] MEDS ORDERED: Furosemide 40 MG/4 ML VIAL SLOW IVP SCH (02:00)
[2019-01-07] MEDS ORDERED: HumaLOG 300 UNITS/3 ML VIAL SC PRN (02:39)
[2019-01-07] MEDS ORDERED: Dextrose 5% in Water 1,000 ML IV PRN (02:39)
[2019-01-07] MEDS ORDERED: Dextrose 50% Abboject 50 ML SYRINGE SLOW IVP PRN (02:39)
[2019-01-07 03:57] LABS: #Lymphocytes 0.4 thou/uL (1.20-3.40); #Monocytes 0.1 thou/uL (0.11-0.59); #Neutrophils 5.4 thou/uL (1.40-6.50); %Eosinophils 0.6 % (0.0-10.0); %Lymphocytes 6.4 % (21.0-51.0); %Monocytes 1.8 % (0.0-10.0); %Neutrophils 91.1 % (42.0-75.0); Hemoglobin 12.2 g/dL (12.0-16.0); Mean Corpuscular HGB CONC 30.3 g/dL (32.0-36.0); Mean Corpuscular Hemoglobin 25.6 pg (27.0-31.0); Mean Corpuscular Volume 84.2 fL (78.0-98.0); Mean Platelet Volume 7.9 fL (7.4-10.4); Platelet Count 230 thou/uL (130-400); RBC Distribution Width 15.4 % (11.5-14.5); Red Blood Cell (RBC) Count 4.76 mill/uL (4.20-5.40); White Blood Cell (WBC) Count 5.9 thou/uL (4.8-10.8)
[2019-01-07 04:00] VITALS: BMI 36.3
[2019-01-07 04:11] LABS: Hemoglobin A1c 5.4 % (4.0-6.0)
[2019-01-07 04:17] LABS: Anion Gap 12 mmol/L (10-20); BUN (Urea Nitrogen) 13 mg/dL (9.8-20.1); Calc. Creatinine Clearance 132 mL/min (70-130); Calcium 8.6 mg/dL (7.8-10.44); Carbon Dioxide 26 mmol/L (22-29); Chloride 106 mmol/L (98-107); Estimated GFR-MDRD Greater than 90; Glucose 130 mg/dL (70-105); Potassium 4.2 mmol/L (3.5-5.1); Sodium 140 mmol/L (136-145)
--- NOTE | 2019-01-07 07:58 | RAD ---
Chest AP view INDICATION: Dyspnea COMPARISON: June 25, 2018 FINDINGS: Tubes and Lines: There is a stable dual-lead pacemaker. Lungs:There are perihilar interstitial and airspace opacities. Cardiac silhouette pulmonary vasculature:There is moderate cardiomegaly which is stable. There is mod erate pulmonary vascular congestion.. Pleural spaces: Clear. No pneumothorax. Upper abdomen:No abnormality seen. Osseous structures: No acute abnormality. IMPRESSION: Cardiomegaly with pulmonary vascular congestion and perihilar opacity suspicious for poss ible CHF. Atypical infectious process cannot be entirely excluded.
[2019-01-07] MEDS: Multivitamin W/ Minerals 1 TAB PO SCH (08:53)
[2019-01-07] MEDS: Enoxaparin Sodium 40 MG/0.4 ML SYRINGE SC SCH (08:53)
[2019-01-07] MEDS: predniSONE 20 MG TAB PO SCH (08:53)
[2019-01-07] MEDS: Cyanocobalamin (Vitamin B-12) 1,000 MCG TAB PO SCH (08:54)
[2019-01-07] MEDS ORDERED: [UNRECOGNIZED DRUG - OTHER] PO SCH ×2 (09:00)
[2019-01-07] MEDS ORDERED: Azithromycin 250 MG TAB PO SCH (12:15)
[2019-01-08] MEDS: Enoxaparin Sodium 40 MG/0.4 ML SYRINGE SC SCH (09:16)
[2019-01-08] MEDS: predniSONE 20 MG TAB PO SCH (09:16)
[2019-01-08] MEDS: Cyanocobalamin (Vitamin B-12) 1,000 MCG TAB PO SCH (09:17)
[2019-01-08] MEDS: Multivitamin W/ Minerals 1 TAB PO SCH (09:17)
[2019-01-08] MEDS: Azithromycin 250 MG TAB PO SCH (09:20)
[2019-01-08 10:01] LABS: Anion Gap 16 mmol/L (10-20); BUN (Urea Nitrogen) 19 mg/dL (9.8-20.1); Calc. Creatinine Clearance 120 mL/min (70-130); Calcium 8.6 mg/dL (7.8-10.44); Carbon Dioxide 24 mmol/L (22-29); Chloride 106 mmol/L (98-107); Estimated GFR-MDRD Greater than 90; Glucose 79 mg/dL (70-105); Potassium 4.8 mmol/L (3.5-5.1); Sodium 141 mmol/L (136-145)
[2019-01-08] MEDS ORDERED: Furosemide 40 MG/4 ML VIAL SLOW IVP SCH (11:15)
--- NOTE | 2019-01-08 11:15 | PDOC.FM ---
- Subjective Subjective: ALLY overnight. Pt reports her breathing has improved. Still complains of persistent cough. - Objective Vital Signs & Weight: Vital Signs (12 hours) Temp Pulse Resp BP BP Pulse Ox 01/08/19 10:17 85 16 01/08/19 07:32 97.9 F 81 16 110/65 96 01/08/19 07:00 89 16 98 01/08/19 04:08 97.5 F L 89 14 103/67 100 01/08/19 01:59 88 16 Weight Weight 91.036 kg I&O: 01/07/19 01/08/19 01/09/19 06:59 06:59 06:59 Intake Total 240 1500 Output Total 400 1300 Balance -160 200 Result Diagrams: 01/07/19 03:43 01/09/19 04:35 Phys Exam - Physical Examination Constitutional: NAD HEENT: PERRLA, sclera anicteric Neck: no nodes, no JVD Respiratory: wheezing present scattered rales and inspiratory and expiratory wheezes. Scattered rhonchi. Cardiovascular: RRR, no significant murmur Gastrointestinal: soft, non-tender, positive bowel sounds Musculoskeletal: pulses present, edema present (trace) Neurological: non-focal, moves all 4 limbs Dx/Plan (1) Acute respiratory failure with hypoxia and hypercapnia Code(s): J96.01 - ACUTE RESPIRATORY FAILURE WITH HYPOXIA; J96.02 - ACUTE RESPIRATORY FAILURE WITH HYPERCAPNIA Status: Acute (2) Diastolic CHF with preserved left ventricular function, NYHA class 2 Code(s): I50.30 - UNSPECIFIED DIASTOLIC (CONGESTIVE) HEART FAILURE Status: Acute (3) Hypertension Code(s): I10 - ESSENTIAL (PRIMARY) HYPERTENSION Status: Chronic - Plan Plan: Acute hypercapnic respiratory distress 2/2 COPD exacerbation - Continue prednisone therapy x 5 days - RADHA duoneb q4hr and PRN albuterol - 3 day course of azithromycin Possible CHF exacerbation - Last TTE >5 years ago was WNL. - CXR and exam concerning for fluid overload - echo pending -redose lasix - await echo results daily BMP HTN - home meds, will continue to monitor vs Dispo: Stable, continue diuresis. Ad tessalon perles for cough. Likely DC to home in AM. Back to baseline home O2 requirement. Code: FULL Diet: HH DVT ppx: lovenox Addendum - Attending - Attending Attestation Date/Time: 01/11/19 0808 I personally evaluated the patient and discussed the management with Dr. Lui on . I agree with the History, Examination, Assessment and Plan documented above with any addition or exceptions noted below. Exam reveals diffuse coarse rhonchi and wheezing. Hopefully home soon.
[2019-01-08] MEDS: Benzonatate 100 MG CAP PO PRN (11:54)
[2019-01-08 23:48] VITALS: TEMP 97.4
[2019-01-09 06:05] LABS: Anion Gap 10 mmol/L (10-20); BUN (Urea Nitrogen) 25 mg/dL (9.8-20.1); Calc. Creatinine Clearance 115 mL/min (70-130); Calcium 8.3 mg/dL (7.8-10.44); Carbon Dioxide 34 mmol/L (22-29); Chloride 103 mmol/L (98-107); Estimated GFR-MDRD 90; Glucose 76 mg/dL (70-105); Potassium 4.5 mmol/L (3.5-5.1); Sodium 142 mmol/L (136-145)
--- NOTE | 2019-01-09 07:03 | PDOC.FM ---
- Subjective Subjective: No acute events overnight. Pt remains on her home level of O2. Her cough has somewhat improved. She otherwise feels better. - Objective Vital Signs & Weight: Vital Signs (12 hours) Temp Pulse Resp BP BP Pulse Ox 01/09/19 04:00 99 18 96/66 100 01/09/19 02:40 88 12 01/08/19 23:29 97.4 F L 85 20 95/58 L 100 01/08/19 22:18 92 12 01/08/19 20:00 100 01/08/19 19:45 98.3 F 88 20 108/61 100 Weight Weight 89.358 kg I&O: 01/08/19 01/09/19 01/10/19 06:59 06:59 06:59 Intake Total 1500 750 Output Total 1300 800 Balance 200 -50 Result Diagrams: 01/07/19 03:43 01/09/19 04:35 Phys Exam - Physical Examination Constitutional: NAD HEENT: PERRLA, sclera anicteric Neck: no nodes, no JVD Respiratory: no wheezing, no rales, clear to auscultation bilateral mild rhonchi scattered Cardiovascular: RRR, no significant murmur, no rub Gastrointestinal: soft, non-tender, no distention Neurological: non-focal, normal sensation, moves all 4 limbs Skin: no rash Dx/Plan (1) Acute respiratory failure with hypoxia and hypercapnia Code(s): J96.01 - ACUTE RESPIRATORY FAILURE WITH HYPOXIA; J96.02 - ACUTE RESPIRATORY FAILURE WITH HYPERCAPNIA Status: Acute (2) Diastolic CHF with preserved left ventricular function, NYHA class 2 Code(s): I50.30 - UNSPECIFIED DIASTOLIC (CONGESTIVE) HEART FAILURE Status: Acute (3) Hypertension Code(s): I10 - ESSENTIAL (PRIMARY) HYPERTENSION Status: Chronic - Plan Plan: Acute hypercapnic respiratory distress 2/2 COPD exacerbation - Continue prednisone therapy x 5 days - RADHA duoneb q4hr and PRN albuterol - 3 day course of azithromycin - pt lung exam drastically improved - ok for DC to home - tessalon PRN for cough Possible CHF exacerbation - EF 20-25%, pacer in place - lung exam improved and back to baseline O2 - needs OP cardiology f/u HTN - home meds, will continue to monitor vs Dispo: Stable, plan for DC to home today. Code: FULL Diet: HH DVT ppx: lovenox Addendum - Attending - Attending Attestation Date/Time: 01/09/19 0728 I personally evaluated the patient and discussed the management with Dr. Lui. I agree with the History, Examination, Assessment and Plan documented above with any addition or exceptions noted below. Patient doing well. On home O2 requirement and denies SOB. Stable for discharge with treatment for COPD exacerbation. Will need further outpatient follow up regarding chronic HF.
[2019-01-09] MEDS: Cyanocobalamin (Vitamin B-12) 1,000 MCG TAB PO SCH (09:38)
[2019-01-09] MEDS: Multivitamin W/ Minerals 1 TAB PO SCH (09:38)
[2019-01-09] MEDS: Azithromycin 250 MG TAB PO SCH (09:38)
[2019-01-09] MEDS: Benzonatate 100 MG CAP PO PRN (09:38)
[2019-01-09] MEDS: predniSONE 20 MG TAB PO SCH (09:38)
[2019-01-09] MEDS: Enoxaparin Sodium 40 MG/0.4 ML SYRINGE SC SCH (09:39)
[2019-01-09 12:27] VITALS: BP 123/75
--- NOTE | 2019-01-11 11:15 | PQF ---
FLORECITA PARK NICHOLAS *r [id number] CLINICAL DOCUMENTATION IMPROVEMENT CLARIFICATION FORM: ICD-10 Updated PLEASE DO AN ADDENDUM TO THE PROGRESS NOTE WITH ANY DOCUMENTATION UPDATES OR ADDITIONS AND CARRY THROUGH TO DC SUMMARY. THANK YOU. DATE: 01-1101-13-19 ATTN: DR. BOWLING / DR. LAW Please exercise your independent, professional judgment in responding to the clarification form. Clinical indicators are provided on the bottom of this form for your review Please check appropriate box(s): [ x] Acute On Chronic Respiratory Failure with [ x ] Hypoxia [ ] Hypercapnia [ ] Acute Respiratory Failure with [ ] Hypoxia [ ] Hypercapnia [ ] Other diagnosis [ ] Unable to determine For continuity of documentation, please document condition throughout progress notes and discharge summary. Thank You. CLINICAL INDICATORS - SIGNS / SYMPTOMS / LABS ED: RR 20-34; O2 SAT 93-98% 01-07 H&P ([facility]): * SOB/WHEEZING STARTED YESTERDAY * USING BREATHING TX AT HOME W/MINIMAL TO NO RELIEF * SWELLING LE - 1+ EDEMA TO SHINS BILATERAL * PER EMS 92% ON RA - NOW O2 SAT 93% ON 2LNC 01-07 CXR: MODERATE PULMONARY VASCULAR CONGESTION 01-08 ([place]) ACUTE HYPOXIA / HYPERCAPNIA RESPIRATORY FAILURE; POSSIBLE DIASTOLIC CHF EXACERBATION RISK FACTORS H&P ([facility]): PATIENT USES 2L O2 AT HOME; HX COPD/ASHTMA AND CHF TREATMENTS: CPOE ORDERS: OXYGEN 2L NC - KEEP O2 SAT >88% ECHO: EF 20-25% MAR: ED: LEVAQUIN IV (01-07) IV LASIX (01-07/01-08) ALBUTEROL NEBS THANK YOU, CATARINA (This form is maintained as a part of the permanent medical record) 2014 [employer]. All Rights Reserved Catarina Dalal RN, BS [email or web address]
== END 2019-01-09 12:31 | disposition home or self-care (01) | DRG 189 ==
LOC: ERS 00:09 → 2SW 01:10 → OBSVTOIN 01-08 14:38
PROVIDERS: ADMIT Emergency Medicine; ATTEND Emergency Medicine
DX: J96.21 Acute and chronic respiratory failure with hypoxia (principal); I50.33 Acute on chronic diastolic (congestive) heart failure; J44.1 Chronic obstructive pulmonary disease with (acute) exacerbation; J96.02 Acute respiratory failure with hypercapnia; I11.0 Hypertensive heart disease with heart failure; J44.9 Chronic obstructive pulmonary disease, unspecified; F41.8 Other specified anxiety disorders; E66.9 Obesity, unspecified; Z98.84 Bariatric surgery status; Z95.0 Presence of cardiac pacemaker; Z87.891 Personal history of nicotine dependence; Z68.34 Body mass index [BMI] 34.0-34.9, adult; Z86.69 Personal history of other diseases of the nervous system and sense organs
CPT/HCPCS: 36415; 36416; 71045; 80048; 80053; 82550; 82805; 83036; 83605; 83690; 83880; 84145; 84484; 85025; 87040; 93005; 93306; 93798; 94640; 96361; 96365; 96366; 96375; J1100; J1650; J1940; J1956; J3475; J7512; J7611; J7620

== ENCOUNTER 2019-01-30 03:32 | Emergency (ER) | payer MEDICARE, MEDICAID ==
[2019-01-30] MEDS ORDERED: Cyclobenzaprine 10 MG TAB ONE (04:41)
== END 2019-01-30 04:48 | disposition home or self-care (01) ==
LOC: ERS 03:32
DX: J44.9 Chronic obstructive pulmonary disease, unspecified (principal); M54.5 Low back pain; F41.9 Anxiety disorder, unspecified; F32.9 Major depressive disorder, single episode, unspecified; Z87.891 Personal history of nicotine dependence; Z79.82 Long term (current) use of aspirin; Z79.899 Other long term (current) drug therapy; Z79.51 Long term (current) use of inhaled steroids
CPT/HCPCS: 99283

== ENCOUNTER 2019-04-04 11:59 | Emergency (ER) | payer MEDICARE, MEDICAID ==
--- NOTE | 2019-04-04 13:52 | CT ---
CT THORACIC SPINE WITHOUT CONTRAST: HISTORY: Back pain. COMPARISON: None. FINDINGS: Mild bone demineralization. Mild loss of disc space height and osteophyte formation throughout the t horacic spine. Minimal vacuum disc phenomenon at T10-T11. Patchy interstitial and septal opacities, along with ground glass opacification, of the lung parenchyma. Nodular opacities are note d in the left lower lobe. There appears to be an ill-defined solid opacity, right upper lobe, measuring 0.5 x 1.0 cm. There is a second solid opacity at the anterior aspect of the right upper lo be, measuring 1.4 x 1.0 cm. The mediastinal structures are unremarkable. The heart is enlarged. There are coronary artery calc ifications. Calcified mediastinal lymph nodes and hilar lymph nodes are suspected. The visualized solid organs are unremarkable. Thoracic spine vertebral body height is maintained. No fracture. L imited evaluation of the contents of the central spinal canal and neural foramina due to technique. No evidence of high-grade central canal stenosis. No evidence of high-grade neural foraminal narrow ing. IMPRESSION: 1. Limited evaluation due to technique. No fracture. 2. No evidence of high-grade central canal stenosis or high-grade foraminal narrowing. 3. Lung parenchymal nodules, as described above, limited/incomplete evaluation. CODE LN Transcribed Date/Time: 04/04/2019 3:07 PM
--- NOTE | 2019-04-04 14:04 | CT ---
CT LUMBAR SPINE WITHOUT CONTRAST: HISTORY: Pain. COMPARISON: None. FINDINGS: Five lumbar type vertebral bodies. Vertebral body height is maintained. No fracture. There is 5.6 mm of anterolisthesis of L4 upon L5. No associated spondylolysis. Vacuum disc phenomenon at L5-S1 without significant loss of disc space height. No paraspinal or retroperitoneal mass, lymphadenopath y, or hematoma. Symmetric attenuation of the paraspinal muscles. The visualized solid organs are unremarkable. There appears to be diffuse heterogeneous attenuation of the osseous structures sugges ting bone demineralization. Limited evaluation the contents of the central spinal canal and neural foramina due to technique T11-T12 and T12-L1: No significant central canal stenosis or foraminal narrowing. L1-L2: No significant central canal stenosis or foraminal narrowing. L2-L3: No significant central canal stenosis or neural foraminal narrowing. L3-L4: Broad-based disc bulge, ligament flavum thickening, and facet hypertrophy result in mild cent ral canal stenosis. Bilaterally, neural foramina are patent. L4-L5: Moderate loss of disc space height. Broad-based disc bulge with a left and right subarticula r component. Ligament flavum thickening and facet hypertrophy are present. Moderate central canal stenosis. Presumed mass effect upon bilateral traversing L5 nerve roots. Mild right and mild-to-mod erate left foraminal narrowing. L5-S1: There is a central/left subarticular disc protrusion. There appears to be obscuration of the traversing left S1 nerve root. Mild narrowing of the thecal sac. Disc material encroaches upon but does not obscure the traversing right S1 nerve root. Moderate right and [id number] left fo raminal narrowing. IMPRESSION: 1. No fracture. 2. Grade 1 anterolisthesis of L4 upon L5. 3. Degenerative changes, lumbar spine, as described above. 4. Diffuse bone demineralization. Transcribed Date/Time: 04/04/2019 3:24 PM
[2019-04-04] MEDS ORDERED: HYDROcodone/Acetaminophen 5/325 mg Tablet ONE (14:29)
== END 2019-04-04 15:24 | disposition home or self-care (01) ==
LOC: ERS 11:59
DX: S39.012A Strain of muscle, fascia and tendon of lower back, initial encounter (principal); E11.9 Type 2 diabetes mellitus without complications; J44.9 Chronic obstructive pulmonary disease, unspecified; E66.9 Obesity, unspecified; I11.0 Hypertensive heart disease with heart failure; I50.9 Heart failure, unspecified; F41.9 Anxiety disorder, unspecified; F32.9 Major depressive disorder, single episode, unspecified; Z87.891 Personal history of nicotine dependence; Z79.899 Other long term (current) drug therapy; Z79.51 Long term (current) use of inhaled steroids; Z79.82 Long term (current) use of aspirin; X58.XXXA Exposure to other specified factors, initial encounter
CPT/HCPCS: 72128; 72131; 93005

== ENCOUNTER 2019-04-29 09:30 | Outpatient (CLI) | payer MEDICARE, MEDICAID ==
--- NOTE | 2019-04-29 09:50 | RAD ---
XR Chest Pa Lat @ POB HISTORY: Dyspnea COMPARISON: 01/07/2019 FINDINGS: The heart size is enlarged. The aorta is tortuous. Left-sided pacemaker device remains in p lace. The lungs are expanded with pulmonary vascular congestion. No lobar consolidation, pneumothoraces or pleural effusions are seen. IMPRESSION: Mild CHF.
== END 2019-04-29 09:31 | disposition home or self-care (01) ==
LOC: RAD 09:30
PROVIDERS: ATTEND Internal Medicine Critical Care Medicine
DX: R06.00 Dyspnea, unspecified (principal); I50.9 Heart failure, unspecified
CPT/HCPCS: 71046

== ENCOUNTER 2019-06-21 08:08 | Day surgery (SDC) | payer MEDICARE, MEDICAID ==
[2019-06-21 09:45] LABS: Anion Gap 14 mmol/L (10-20); BUN (Urea Nitrogen) 20 mg/dL (9.8-20.1); Calc. Creatinine Clearance 0 mL/min (70-130); Calcium 8.6 mg/dL (7.8-10.44); Carbon Dioxide 28 mmol/L (22-29); Chloride 103 mmol/L (98-107); Estimated GFR-MDRD 85; Glucose 77 mg/dL (70-105); Potassium 3.7 mmol/L (3.5-5.1); Sodium 141 mmol/L (136-145)
[2019-06-21 10:02] LABS: #Eosinphils 0.2 thou/uL (0.0-0.7); #Lymphocytes 0.9 thou/uL (1.20-3.40); #Monocytes 0.4 thou/uL (0.11-0.59); #Neutrophils 1.9 thou/uL (1.40-6.50); %Basophils 0.3 % (0.0-1.0); %Eosinophils 4.5 % (0.0-10.0); %Lymphocytes 26.9 % (21.0-51.0); %Monocytes 12.4 % (0.0-10.0); %Neutrophils 55.9 % (42.0-75.0); Hemoglobin 11.2 g/dL (12.0-16.0); Mean Corpuscular HGB CONC 30.7 g/dL (32.0-36.0); Mean Corpuscular Hemoglobin 27.7 pg (27.0-31.0); Mean Corpuscular Volume 90.3 fL (78.0-98.0); Mean Platelet Volume 8.2 fL (7.4-10.4); Platelet Count 214 thou/uL (130-400); RBC Distribution Width 14.3 % (11.5-14.5); Red Blood Cell (RBC) Count 4.04 mill/uL (4.20-5.40); White Blood Cell (WBC) Count 3.5 thou/uL (4.8-10.8)
[2019-06-21 10:10] LABS: PTT 30.6 SEC (22.9-36.1); Prothrombin Time 13.2 SEC (12.0-14.7)
[2019-06-21] MEDS ORDERED: Meperidine HCl/PF 25 MG/ML VIAL ONE (10:47)
[2019-06-21] MEDS ORDERED: Midazolam HCl 2 mg/2 ml Vial ONE ×2 (10:47→11:50)
[2019-06-21] MEDS ORDERED: Propofol 500 MG/50 ML VIAL ONE (10:50)
[2019-06-21] MEDS ORDERED: Lidocaine 1% (PF) 30 ML VIAL ONE (11:54)
--- NOTE | 2019-06-21 14:00 | RAD ---
EXAM: Single view of the chest HISTORY: Pacemaker exchange COMPARISON: 04/29/2019 FINDINGS: Single view of the chest shows an enlarged but stable cardiomediastinal silhouette. A trip le lead left subclavian pacemaker is seen with its leads in the right atrium, right ventricle, and coronary sinus. No pneumothorax is seen. Scarring is seen in the left mid thorax. There is no eviden ce of consolidation, mass, or pleural effusion. The bones are unremarkable. IMPRESSION: No evidence of acute cardiopulmonary disease
== END 2019-06-21 16:30 | disposition home or self-care (01) ==
LOC: CCL 08:08
PROVIDERS: ATTEND Internal Medicine Cardiovascular Disease
PROC: 0JH609Z Insertion of Cardiac Resynchronization Defibrillator Pulse Generator into Chest Subcutaneous Tissue and Fascia, Open Approach (ICD-10-PCS; principal; 2019-06-21)
PROC: 02H63KZ Insertion of Defibrillator Lead into Right Atrium, Percutaneous Approach (ICD-10-PCS; 2019-06-21)
PROC: 02HK3KZ Insertion of Defibrillator Lead into Right Ventricle, Percutaneous Approach (ICD-10-PCS; 2019-06-21)
PROC: 0JPT0PZ Removal of Cardiac Rhythm Related Device from Trunk Subcutaneous Tissue and Fascia, Open Approach (ICD-10-PCS; 2019-06-21)
DX: I11.0 Hypertensive heart disease with heart failure (principal); I50.22 Chronic systolic (congestive) heart failure; I42.8 Other cardiomyopathies; I44.2 Atrioventricular block, complete; G47.33 Obstructive sleep apnea (adult) (pediatric); J44.9 Chronic obstructive pulmonary disease, unspecified; E11.42 Type 2 diabetes mellitus with diabetic polyneuropathy; E66.01 Morbid (severe) obesity due to excess calories; Z68.31 Body mass index [BMI] 31.0-31.9, adult; Z86.711 Personal history of pulmonary embolism; Z87.891 Personal history of nicotine dependence; Z79.82 Long term (current) use of aspirin; Z79.899 Other long term (current) drug therapy; Z88.6 Allergy status to analgesic agent
CPT/HCPCS: 33224; 36415; 71045; 80048; 85025; 85610; 85730; 93005; 93010; C1882; C1895; C1900; J0690; J2001; J2175; J2250; J2704; J3490

== ENCOUNTER 2020-08-18 03:07 | Inpatient (IN) | payer MEDICARE, MEDICAID ==
[2020-08-18] MEDS ORDERED: Ondansetron PF 4 MG/2 ML Vial ONE (03:21)
[2020-08-18] MEDS ORDERED: Morphine 4 MG/ML VIAL ONE (03:21)
[2020-08-18 03:43] LABS: #Eosinphils 0.2 thou/uL (0.0-0.7); #Monocytes 0.4 thou/uL (0.11-0.59); #Neutrophils 3.5 thou/uL (1.40-6.50); %Basophils 0.7 % (0.0-1.0); %Eosinophils 3.7 % (0.0-10.0); %Lymphocytes 19.2 % (21.0-51.0); %Monocytes 8.3 % (0.0-10.0); %Neutrophils 68.1 % (42.0-75.0); Hemoglobin 13.5 g/dL (12.0-16.0); Mean Corpuscular HGB CONC 30.9 g/dL (32.0-36.0); Mean Corpuscular Hemoglobin 26.3 pg (27.0-31.0); Mean Corpuscular Volume 85.1 fL (78.0-98.0); Platelet Count 198 thou/uL (130-400); RBC Distribution Width 15.7 % (11.5-14.5); Red Blood Cell (RBC) Count 5.12 mill/uL (4.20-5.40); White Blood Cell (WBC) Count 5.2 thou/uL (4.8-10.8)
[2020-08-18] MEDS ORDERED: Clindamycin/D5W 600 mg/50 ml Premix Bag ONE (03:56)
[2020-08-18 04:04] LABS: ALT (SGPT) 13 U/L (8-55); AST (SGOT) 21 U/L (5-34); Albumin 3.6 g/dL (3.5-5.0); Alkaline Phosphatase 115 U/L (40-110); Anion Gap 15 mmol/L (10-20); BUN (Urea Nitrogen) 25 mg/dL (9.8-20.1); Bilirubin, Total 0.5 mg/dL (0.2-1.2); Calc. Creatinine Clearance 0 mL/min (70-130); Calcium 8.3 mg/dL (7.8-10.44); Carbon Dioxide 31 mmol/L (22-29); Chloride 105 mmol/L (98-107); Globulin 3.8 g/dL (2.4-3.5); Glucose 76 mg/dL (70-105); Potassium 4.7 mmol/L (3.5-5.1); Protein, Total 7.4 g/dL (6.0-8.3); Sodium 146 mmol/L (136-145)
[2020-08-18 04:26] LABS: CKMB 3.3 ng/mL (0-6.6)
[2020-08-18] MEDS ORDERED: Aspirin 325 MG TAB ONE (04:59)
[2020-08-18] MEDS ORDERED: Vancomycin 1 GM/200 ML BAG ONE (05:33)
[2020-08-18] MEDS ORDERED: methylPREDNISolone Sod Succ/PF 125 MG/2 ML VIAL IVP SCH (05:36)
[2020-08-18] MEDS ORDERED: Furosemide 40 MG/4 ML VIAL SLOW IVP SCH (05:45)
[2020-08-18] MEDS ORDERED: Piperacillin/Tazobactam 4.5 GM in Sodium Chloride 0.9% 100 ML IVPB SCH (06:00)
--- NOTE | 2020-08-18 06:38 | HP ---
REASON FOR ADMISSION: Shortness of breath and right lower extremity swelling. HISTORY OF PRESENT ILLNESS: This is a 55-year-old female patient, who has a wound on her right lower extremity for the past month. She does not remember if she had trauma to that area, but as the days progressed, the swelling increased in her right lower extremity. It was not improving. Also, it became very painful. On the other hand, she has been more short of breath than usual, which prompted her to seek medical attention. She was brought to the emergency room. A CT of the leg did show a foreign body in that area with some gas in the tissue. ER physician did speak with Surgery. The presentation did not sound like necrotizing fasciitis. Surgery was consulted and they will see the patient for possible I and D. When I go to see the patient, she appears to be short of breath, but able to finish a full sentence. She denies having any chest pain, denies fevers, denies chills. PAST MEDICAL HISTORY: 1. Congestive heart failure with low ejection fraction, post pacemaker placement. 2. Previously morbid obesity and diabetes. She is status post gastric bypass, which helped with weight loss and resolution of her diabetes. 3. Low blood pressure. 4. COPD, on chronic oxygen 2 L nasal cannula. 5. Status post x2. 6. History of Wernicke encephalopathy. 7. Anxiety. 8. Depression. 9. Asthma. SOCIAL HISTORY: She is a former smoker, quit 5 years ago. She drinks alcohol occasionally. Does not use illegal substance. FAMILY HISTORY: Reviewed, found to be negative for premature coronary artery disease. REVIEW OF SYSTEMS: All systems reviewed, except for the above mentioned, found to be negative. PHYSICAL EXAMINATION: GENERAL: She is awake, alert, oriented, appears short of breath, able to finish a full sentence. VITAL SIGNS: Her blood pressure is 107/79, heart rate of 84, saturating 94% on 2 L nasal cannula. HEENT: Head is nontraumatic, normocephalic. Pupils equal, reactive. Extraocular movements are intact. Nonicteric sclerae. Well injected conjunctivae. Oral mucosa normal. Nasal mucosa normal. NECK: Supple. No adenopathy. No murmur. Thyroid is not palpable. Trachea is midline. No supraclavicular lymphadenopathy. HEART: S1, S2, regular. No murmur. No gallops. No friction rubs. No displacement of PMI. LUNGS: Decreased air entry bilaterally. Diffuse expiratory wheezes. No rhonchi. ABDOMEN: Bowel sounds are positive. Nontender abdomen. EXTREMITIES: She does have 2+ pitting edema bilateral lower extremities, more on the right than the left. The right leg is warm to touch, tender as well. There is a superficial ulceration with purulent discharge in a wound that is approximately 5 to 7 cm in length around the garcia area. NEURO: Cranial nerves 2 through 12 within normal limits. Normal motor function. Normal sensory function. Normal reflexes. LABORATORY DATA: Blood work shows WBC of 5.2, hemoglobin 13.5, platelets of 198. Sodium of 146, potassium 4.7, bicarb 31, BUN 25, creatinine 0.98. Troponin 0.081. BNP 185.9. A CT of the leg shows evidence of cellulitis and a foreign body. No purulent collection seen. We are still awaiting the official read by Radiology. Chest x-ray possibly showing congestive heart failure. It is showing also cardiomegaly. EKG shows paced rhythm. ASSESSMENT AND PLAN: This is a 55-year-old female patient presenting with shortness of breath, also worsening of right lower extremity cellulitis. CAT scan revealed a foreign body in the wound, and her troponin is abnormal. Infectious Disease: The patient does have right lower extremity cellulitis, did receive IV clindamycin. We will change her to IV Zosyn and Surgery will see her for possible I and D. On the other hand, the patient is very short of breath and not a candidate for general anesthesia. I will contact Surgery, we will relay that to them. Pulmonary: The patient has chronic obstructive pulmonary disease, could be having COPD exacerbation. We will continue with neb treatments and IV Solu-Medrol. Cardiac: The patient could be in congestive heart failure. We will administer one dose of IV Lasix. She will be monitored on telemetry and we will recycle her cardiac enzymes. Her initial troponin is abnormal, could be due to demand ischemia. For deep venous thrombosis prophylaxis, she will be on Lovenox subcutaneously. Job ID: [id number]
--- NOTE | 2020-08-18 08:12 | CT ---
PRELIMINARY REPORT/[facility]/EMERGENCY AFTER HOURS PROCEDURE: EXAM: CT right leg without IV contrast CLINICAL HISTORY: Patient brought to the ER by EMS due to pain in her right leg for 2 to 3 days. Patient reports approx imately a week ago she noticed a blister on the anterolateral aspect of the right lower leg. This has progressed to be much larger in size and more painful. She denies known injury. She is unaware of fe tatiana. TECHNIQUE: Axial images were acquired through the right knee without IV contrast. Reformatted images were review ed. COMPARISON: None provided. FINDINGS: BONES: No acute fracture or focal osseous lesion. No obvious osteolysis. JOINTS: No dislocation. The joint spaces are normal. SOFT TISSUES: Diffuse, nonspecific subcutaneous induration throughout the leg. Soft tissue air. No obvious fluid collections. The area of clinical concern may be identified along the lateral aspect of the leg at t he junction of the middle and distal thirds. There is a small subcutaneous metallic density noted la terally at about mid thigh. IMPRESSION: No acute osseous abnormality. Nonspecific subcutaneous induration ELECTRONICALLY SIGNED BY: Darrell Parker MD Aug 18, 2020 4:32:27 AM [employer] This report is intended for review by the ordering physician only, in accordance of law. If you recei ve this report in error, please call [facility] at [phone]. FINAL REPORT EMERGENT AFTER HOURS CT OF THE RIGHT LEG/RIGHT TIBIA/FIBULA WITHOUT CONTRAST: FINDINGS/IMPRESSION: I agree with the findings and impression given in the preliminary report per [facility] physici an. 1. No acute osseous abnormality. 2. There is diffuse cellulitis and induration of the leg. No focal fluid collection is identified, but evaluation is limited without IV contrast. POS: NILESH
--- NOTE | 2020-08-18 08:12 | RAD ---
Exam:2 views right tibia fibula HISTORY: Pain COMPARISON: None FINDINGS: No fracture, cortical irregularity or periosteal reaction. IMPRESSION: No fracture. No cortical irregularity or periosteal reaction.
--- NOTE | 2020-08-18 08:13 | RAD ---
Exam: Chest one view HISTORY:Dyspnea. Comparison: 04/29/2019 FINDINGS: Cardiac silhouette:Stable cardiomegaly. Pacing device: There is a left-sided transvenous defibrillator with lead position of the right atrium , right ventricle and coronary sinus. Aorta: Atherosclerotic and mildly elongated Pulmonary vessels: Normal Costophrenic angles: Clear LUNGS: Patchy interstitial opacities likely representing edema. Pneumothorax: None Osseous abnormalities: None IMPRESSION: Cardiomegaly. Pulmonary edema. Mild congestive heart failure.
[2020-08-18 08:57] LABS: Troponin I 0.076 ng/mL (< 0.028)
[2020-08-18] MEDS: Furosemide 40 MG/4 ML VIAL SLOW IVP SCH ×2 (09:20→21:13)
[2020-08-18] MEDS: Piperacillin/Tazobactam 4.5 GM in Sodium Chloride 0.9% 100 ML IVPB SCH ×3 (09:21→21:13)
[2020-08-18] MEDS: methylPREDNISolone Sod Succ 40 MG VIAL IVP SCH ×2 (09:21→16:03)
[2020-08-18 20:17] LABS: SARS-CoV-2 MS2 Positive; SARS-CoV-2 N Gene Negative; SARS-CoV-2 S Gene Negative; SARS-CoV-2 by NAA Not Detected (NotDetected); SARS-CoV-2 orf1ab Negative
--- NOTE | 2020-08-18 22:19 | CON ---
DATE OF CONSULTATION: 08/18/2020 CHIEF COMPLAINT: Right lower quadrant infection. HISTORY OF PRESENT ILLNESS: This is a 55-year-old female admitted to the hospitalist service overnight with CHF exacerbation. She has a history of super morbid obesity, has lost weight after gastric bypass. She has always had venous stasis changes to bilateral lower extremities. She now presents with chronic open ulcerative wound to the right lower extremity. She has not been seen by Wound Care anywhere. She has not been on any outpatient antibiotics. She denies known history of infected venous stasis disease. She has been hemodynamically stable, afebrile. CT showed cellulitic type changes in the area, but no drainable abscess. PAST MEDICAL HISTORY: CHF, morbid obesity, COPD, and Wernicke encephalopathy. PAST SURGICAL HISTORY: Includes gastric bypass. MEDICATIONS: Taken daily, see list. ALLERGIES: IBUPROFEN. SOCIAL HISTORY: No smoking or alcohol or other drugs. REVIEW OF SYSTEMS: A 10 system review of systems otherwise negative described above. PHYSICAL EXAMINATION: VITAL SIGNS: Blood pressure 92/53, pulse 68, and respirations 21. She is afebrile. CHEST: Coarse breath sounds. HEART: Regular rate. ABDOMEN: Soft, nontender, and nondistended. Well-healed incisions. EXTREMITIES: No ischemia to extremities. There is mild edema to the right lower extremity and left lower extremity. There is chronic venous stasis disease to bilateral lower extremities. There is a venous stasis ulcer to the right lower extremity with some eschar, but no necrosis. No subcutaneous crepitus. No bulla formation. CT scan shows cellulitic type changes in the area and edema, but without drainable abscess. No air in the subcu or fascia. LABORATORY DATA: White blood cell count is 5, with normal differential. Creatinine 0.98. ASSESSMENT: 1. Chronic venous stasis disease, bilateral extremities right worse than left. Cellulitis/infected venous stasis ulcer, right lower extremity. 2. Chronic severe congestive heart failure, chronic obstructive pulmonary disease. 3. Morbid obesity. PLAN: I would very quickly convert her from IV to oral antibiotics. There is no drainable abscess. She does not need any surgical debridement at this time. As an outpatient, she needs to be seen in Wound Care for the typical more long-term treatment for venous stasis ulcers. Will follow as needed. Job ID: [id number] [facility]
[2020-08-19] MEDS: methylPREDNISolone Sod Succ 40 MG VIAL IVP SCH ×2 (00:39→09:40)
[2020-08-19] MEDS: Piperacillin/Tazobactam 4.5 GM in Sodium Chloride 0.9% 100 ML IVPB SCH ×4 (03:19→21:39)
[2020-08-19] MEDS: Furosemide 40 MG/4 ML VIAL SLOW IVP SCH (09:38)
--- NOTE | 2020-08-19 11:11 | PDOC.HOSPP ---
- Subjective Encounter Date: 08/19/20 Encounter Time: 10:00 Subjective: Patient seen and examined for cellulitis with CHF. Shortness of breath improving. Lower extremity erythema improving as well. Denies any chest pain, palpitations or syncope. No fever or chills reported. Denies any nausea or vomiting. - Objective Vital Signs & Weight: Vital Signs (12 hours) Temp Pulse Resp BP BP Pulse Ox 08/19/20 07:41 98.8 F 60 16 123/71 99 08/19/20 07:40 99 08/19/20 07:12 68 16 08/19/20 03:15 97.3 F L 60 16 110/58 L 94 L 08/19/20 00:40 63 16 94 L 08/18/20 23:41 63 105/66 93 L Weight Admit Weight 210 lb 14.4 oz Weight 205 lb 11.2 oz I&O: 08/18/20 08/19/20 08/20/20 06:59 06:59 06:59 Intake Total 1227 Output Total 3450 Balance -2223 Result Diagrams: 08/18/20 03:31 08/18/20 03:31 Additional Labs: Abnormal Lab Results - Last 48 hrs 08/18/20 03:31: Sodium 146 H, Carbon Dioxide 31 H, BUN 25 H, Alkaline Phosphatase 115 H, Globulin 3.8 H, Albumin/Globulin Ratio 0.9 L 08/18/20 03:31: B-Natriuretic Peptide 185.9 H 08/18/20 03:31: Troponin I 0.081 H 08/18/20 03:31: MCH 26.3 L, MCHC 30.9 L, RDW 15.7 H, Lymphocytes % 19.2 L, Lymphocytes # 1.0 L 08/18/20 07:46: Troponin I 0.076 H Microbiology - Entire Visit 08/18/20 04:35 Venous blood - Right Hand Blood Culture - Preliminary Gram Positive Suresh Coagulase Neg Staphylococcus 08/18/20 04:30 Venous blood - Left Hand Blood Culture - Preliminary Specimen has been received and culture in progress. No Growth to date. Radiology Reviewed by me: Yes (Chest x-raypulmonary edema) EKG Reviewed by me: Yes (Paced rhythm on telemetry) Hospitalist ROS - Review of Systems Constitutional: denies: fever, chills, sweats, weakness, malaise, other Cardiovascular: reports: orthopnea, edema. denies: chest pain, palpitations, paroxysmal noc. dyspnea, light headedness, other Gastrointestinal: denies: nausea, vomiting, abdominal pain, diarrhea, constipation, melena, hematochezia, other - Medication Medications: Active Medications Generic Name Dose Route Start Last Admin Trade Name Freq PRN Reason Stop Dose Admin Albuterol/Ipratropium 3 ml 08/18/20 07:00 08/19/20 07:12 Ipratropium/Albuterol Sulfate 3 Ml Neb NEB 3 ml [id number] RADHA Administration Furosemide 40 mg 08/18/20 09:00 08/19/20 09:38 Furosemide 40 Mg/4 Ml Vial SLOW IVP 40 mg BID RADHA Administration Piperacillin Sod/Tazobactam 100 mls @ 200 mls/hr 08/18/20 10:00 08/19/20 09:38 Sod 4.5 gm/ Sodium Chloride IVPB 100 mls 0400,1000,1600,2200 RADHA Administration Methylprednisolone Sodium Succinate 40 mg 08/18/20 09:00 08/19/20 09:40 Methylprednisolone Sod Succ 40 Mg Vial IVP 40 mg Q8H RADHA Administration Sodium Chloride 10 ml 08/18/20 09:00 08/19/20 09:38 Flush - Normal Saline 10 Ml Syringe IVF 10 ml Q12HR RADHA Administration - Exam General Appearance: NAD ENT: normocephalic atraumatic, no oropharyngeal lesions Neck: supple, symmetric, no thyromegaly Heart: RRR, no gallops, no rubs, normal peripheral pulses Respiratory: no wheezes, normal chest expansion, rales (Scattered rales at bases), rhonchi Gastrointestinal: soft, non-tender, non-distended, normal bowel sounds Extremities: no cyanosis, no clubbing, 1+ LE edema Extremities - other findings: Improving erythema Skin: normal turgor, no lesions Neurological: no new deficit Psychiatric: normal affect, A&O x 3 Hosp A/P - Plan Acute on chronic systolic/diastolic heart failure exacerbationPOA COPD exacerbationPOA Acute hypoxic respiratory failure due to abovePOA Bilateral lower extremity venous stasis with cellulitisleft more than rightPOA Obesity with a BMI 36.4 Anxiety History of Wernicke's encephalopathy Former smoker CKD stage II Suspected sleep apnea S/p AICD Plan: Shortness of breath improving. Patient had an echocardiogram at cardiology office in November 2018 that showed normal ejection fraction with moderate tricuspid regurgitation and elevated right-sided pressures. We will continue IV diuretics. Will discontinue steroids. Continue nebulizer treatments. Start carvedilol at low-dose. Add losartan. Monitor labs on the daily basis. Sleep study as outpatient is recommended. Continue cardiac rehab. Continue wound care. We will repeat blood culturespositive blood culture most likely contaminant
[2020-08-19] MEDS ORDERED: Senokot S 8.6-50 MG TAB PO PRN (11:24)
[2020-08-19] MEDS ORDERED: Ondansetron PF 4 MG/2 ML Vial IVP PRN (11:24)
[2020-08-19] MEDS ORDERED: Calcium Carbonate 500 MG ChewTAB PO PRN (11:24)
[2020-08-19] MEDS ORDERED: Acetaminophen 325 MG TAB PO PRN (11:24)
[2020-08-19 13:47] LABS: Chloride 96 mmol/L (98-107); Potassium 4.4 mmol/L (3.5-5.1); Sodium 142 mmol/L (136-145)
[2020-08-19 13:48] LABS: Calcium 8.8 mg/dL (7.8-10.44); Glucose 188 mg/dL (70-105)
[2020-08-19 13:50] LABS: Anion Gap 16 mmol/L (10-20); Carbon Dioxide 34 mmol/L (22-29)
[2020-08-19 13:51] LABS: Calc. Creatinine Clearance 83 mL/min (70-130)
[2020-08-19 13:52] LABS: BUN (Urea Nitrogen) 18 mg/dL (9.8-20.1)
--- NOTE | 2020-08-19 15:07 | EKG ---
Test Reason : Blood Pressure : / mmHG Vent. Rate : 089 BPM Atrial Rate : 089 BPM P-R Int : 122 ms QRS Dur : 148 ms QT Int : 246 ms P-R-T Axes : 045 -22 062 degrees QTc Int : 299 ms Electronic ventricular pacemaker Confirmed by MAYRA BARNES ([id number]), restaurant expeditor LUIS ENRIQUE FLORES ([id number]) on 08/19/2020 3:07:00 PM Referred By: Confirmed By:MAYRA BARNES
[2020-08-19] MEDS: Heparin 5,000 UNITS/ML VIAL SC SCH ×2 (16:08→21:39)
[2020-08-19] MEDS ORDERED: Furosemide 40 MG/4 ML VIAL SLOW IVP SCH (21:00)
[2020-08-19] MEDS: Famotidine 20 MG TAB PO SCH (21:39)
[2020-08-20 03:48] LABS: #Lymphocytes 0.9 thou/uL (1.20-3.40); #Monocytes 0.7 thou/uL (0.11-0.59); #Neutrophils 5.9 thou/uL (1.40-6.50); %Basophils 0.5 % (0.0-1.0); %Eosinophils 0.5 % (0.0-10.0); %Lymphocytes 12.3 % (21.0-51.0); %Monocytes 9.2 % (0.0-10.0); %Neutrophils 77.6 % (42.0-75.0); Hemoglobin 12.4 g/dL (12.0-16.0); Mean Corpuscular HGB CONC 30.9 g/dL (32.0-36.0); Mean Corpuscular Hemoglobin 26.6 pg (27.0-31.0); Mean Corpuscular Volume 85.8 fL (78.0-98.0); Mean Platelet Volume 9.1 fL (7.4-10.4); Platelet Count 193 thou/uL (130-400); RBC Distribution Width 15.8 % (11.5-14.5); Red Blood Cell (RBC) Count 4.65 mill/uL (4.20-5.40); White Blood Cell (WBC) Count 7.7 thou/uL (4.8-10.8)
[2020-08-20 04:05] LABS: Anion Gap 13 mmol/L (10-20); BUN (Urea Nitrogen) 29 mg/dL (9.8-20.1); Calc. Creatinine Clearance 90 mL/min (70-130); Calcium 8.3 mg/dL (7.8-10.44); Carbon Dioxide 37 mmol/L (22-29); Chloride 97 mmol/L (98-107); Glucose 88 mg/dL (70-105); Magnesium 2.2 mg/dL (1.6-2.6); Potassium 4.2 mmol/L (3.5-5.1); Sodium 143 mmol/L (136-145)
[2020-08-20] MEDS: Furosemide 40 MG/4 ML VIAL SLOW IVP SCH ×2 (05:51→14:27)
[2020-08-20] MEDS: Piperacillin/Tazobactam 4.5 GM in Sodium Chloride 0.9% 100 ML IVPB SCH ×3 (05:51→16:20)
[2020-08-20] MEDS: Heparin 5,000 UNITS/ML VIAL SC SCH ×3 (09:08→20:14)
[2020-08-20] MEDS: Saccharomyces boulardii 250 MG CAP PO SCH (09:08)
[2020-08-20] MEDS: Famotidine 20 MG TAB PO SCH ×2 (09:08→20:13)
[2020-08-20] MEDS: Ondansetron ODT 4 MG TAB PO PRN (09:13)
--- NOTE | 2020-08-20 17:48 | PDOC.HOSPP ---
- Subjective Encounter Date: 08/20/20 Encounter Time: 10:00 Subjective: Patient seen and examined for congestive heart failure. Shortness of breath and edema improving. Denies any fever, chills, chest pain or palpitations. - Objective Vital Signs & Weight: Vital Signs (12 hours) Temp Pulse Pulse Pulse Resp BP BP 08/20/20 16:13 97.7 F 71 12 08/20/20 12:51 68 19 08/20/20 12:25 97.7 F 61 16 08/20/20 11:04 69 61 88/54 L 102/56 L 08/20/20 08:51 97.6 F 73 16 08/20/20 07:05 78 20 BP BP Pulse Ox Pulse Ox Pulse Ox 08/20/20 16:13 91/55 L 92 L 08/20/20 12:51 08/20/20 12:25 85/61 L 96 08/20/20 11:04 92 L 94 L 08/20/20 08:51 84/53 L 96 08/20/20 07:05 Weight Admit Weight 210 lb 14.4 oz Weight 202 lb 6.4 oz I&O: 08/19/20 08/20/20 08/21/20 06:59 06:59 06:59 Intake Total 1227 860 Output Total 3450 100 Balance -2223 760 Result Diagrams: 08/20/20 03:28 08/20/20 03:28 Additional Labs: Abnormal Lab Results - Last 48 hrs 08/19/20 13:16: Chloride 96 L, Carbon Dioxide 34 H, Creatinine 1.14 H 08/20/20 03:28: Chloride 97 L, Carbon Dioxide 37 H, BUN 29 H 08/20/20 03:28: MCH 26.6 L, MCHC 30.9 L, RDW 15.8 H, Neutrophils % 77.6 H, Lymphocytes % 12.3 L, Lymphocytes # 0.9 L, Monocytes # 0.7 H Microbiology - Entire Visit 08/18/20 04:30 Venous blood - Left Hand Blood Culture - Preliminary NO GROWTH AT 48 HOURS 08/19/20 12:05 Venous blood - Right Arm Blood Culture - Preliminary Specimen has been received and culture in progress. No Growth to date. 08/19/20 12:05 Venous blood - Left Arm Blood Culture - Preliminary Specimen has been received and culture in progress. No Growth to date. 08/18/20 04:35 Venous blood - Right Hand Blood Culture - Preliminary Presumptive Corynebacterium sp Coagulase Neg Staphylococcus Radiology Reviewed by me: Yes (Chest x-raypulmonary edema) EKG Reviewed by me: Yes (Paced rhythm on telemetry) Hospitalist ROS - Review of Systems Cardiovascular: denies: chest pain, palpitations, orthopnea, paroxysmal noc. dyspnea, edema, light headedness, other Gastrointestinal: denies: nausea, vomiting, abdominal pain, diarrhea, constipation, melena, hematochezia, other - Medication Medications: Active Medications Generic Name Dose Route Start Last Admin Trade Name Freq PRN Reason Stop Dose Admin Albuterol/Ipratropium 3 ml 08/18/20 07:00 08/20/20 12:51 Ipratropium/Albuterol Sulfate 3 Ml Neb NEB 3 ml [id number] RADHA Administration Calcium Carbonate 1,000 mg 08/19/20 11:24 08/20/20 09:13 Calcium Carbonate 500 Mg Chewtab PO 1,000 mg Q4H PRN Administration Heartburn or Indigestion Famotidine 20 mg 08/19/20 21:00 08/20/20 09:08 Famotidine 20 Mg Tab PO 20 mg BID RADHA Administration Heparin Sodium (Porcine) 5,000 units 08/19/20 15:00 08/20/20 14:28 Heparin 5,000 Units/Ml Vial SC 5,000 units TID RADHA Administration Piperacillin Sod/Tazobactam 100 mls @ 200 mls/hr 08/18/20 10:00 08/20/20 16:20 Sod 4.5 gm/ Sodium Chloride IVPB 100 mls 0400,1000,1600,2200 RADHA Administration Ondansetron HCl 4 mg 08/19/20 11:24 08/20/20 09:13 Ondansetron Odt 4 Mg Tab PO 4 mg Q6H PRN Administration Nausea/Vomiting Saccharomyces Boulardii 250 mg 08/20/20 09:00 08/20/20 09:08 Saccharomyces Boulardii 250 Mg Cap PO 250 mg DAILY RADHA Administration Sodium Chloride 10 ml 08/18/20 09:00 08/20/20 09:09 Flush - Normal Saline 10 Ml Syringe IVF 10 ml Q12HR RADHA Administration - Exam General Appearance: ill appearing Heart: RRR, no gallops Respiratory: no wheezes, rales, rhonchi Gastrointestinal: soft, non-tender, non-distended, no guarding, no rigidity Extremities: no cyanosis, no clubbing, 2+ LE edema Neurological: no new deficit Psychiatric: normal affect, A&O x 3 Hosp A/P - Plan DVT proph w/heparin Acute on chronic systolic/diastolic heart failure exacerbation COPD exacerbation Acute hypoxic respiratory failure due to above Bilateral lower extremity venous stasis with cellulitisleft more than right Obesity with a BMI 36.4 Anxiety History of Wernicke's encephalopathy Former smoker CKD stage II Suspected sleep apnea S/p AICD Plan: Reduce IV Lasix dose. Wean O2 as tolerated. Change antibiotics to oral. Repeat blood cultures pending. Continue wound care. A.m. labs. Will consult patient's primary railroad wheels and axles inspector in a.m. Will hold carvedilol and losartan due to blood pressure on the lower sidepatient is however asymptomatic. Recheck orthostatic vitals in a.m. Consult nurse outreach case manager for outpatient wound care tereso pierce. Home O2 assessment in a.m.
[2020-08-20] MEDS: Mometasone 200 MCG/Formoterol 5 MCG 120 PUFF INHALER INH SCH (18:19)
[2020-08-20] MEDS: Cephalexin 250 MG CAP PO SCH (23:34)
[2020-08-21 04:32] LABS: #Eosinphils 0.2 thou/uL (0.0-0.7); #Lymphocytes 1.1 thou/uL (1.20-3.40); #Monocytes 0.6 thou/uL (0.11-0.59); #Neutrophils 2.8 thou/uL (1.40-6.50); %Basophils 0.3 % (0.0-1.0); %Eosinophils 4.4 % (0.0-10.0); %Lymphocytes 23.6 % (21.0-51.0); %Monocytes 12.7 % (0.0-10.0); %Neutrophils 58.9 % (42.0-75.0); Hemoglobin 12.3 g/dL (12.0-16.0); Mean Corpuscular Volume 86.7 fL (78.0-98.0); Mean Platelet Volume 8.7 fL (7.4-10.4); Platelet Count 208 thou/uL (130-400); RBC Distribution Width 15.5 % (11.5-14.5); Red Blood Cell (RBC) Count 4.71 mill/uL (4.20-5.40); White Blood Cell (WBC) Count 4.8 thou/uL (4.8-10.8)
[2020-08-21 04:48] LABS: BUN (Urea Nitrogen) 27 mg/dL (9.8-20.1); Calc. Creatinine Clearance 97 mL/min (70-130); Calcium 8.1 mg/dL (7.8-10.44); Glucose 82 mg/dL (70-105); Magnesium 2.1 mg/dL (1.6-2.6)
[2020-08-21 04:56] LABS: Anion Gap 16 mmol/L (10-20); Carbon Dioxide 33 mmol/L (22-29); Chloride 97 mmol/L (98-107); Potassium 4.2 mmol/L (3.5-5.1); Sodium 142 mmol/L (136-145)
[2020-08-21] MEDS: Cephalexin 250 MG CAP PO SCH ×4 (05:23→23:58)
[2020-08-21] MEDS ORDERED: Furosemide 20 MG/2 ML VIAL SLOW IVP SCH (06:00)
[2020-08-21] MEDS: Mometasone 200 MCG/Formoterol 5 MCG 120 PUFF INHALER INH SCH ×2 (07:27→18:40)
[2020-08-21] MEDS: Famotidine 20 MG TAB PO SCH ×2 (08:49→20:22)
[2020-08-21] MEDS: Saccharomyces boulardii 250 MG CAP PO SCH (08:49)
[2020-08-21] MEDS: Heparin 5,000 UNITS/ML VIAL SC SCH ×3 (08:50→20:23)
--- NOTE | 2020-08-21 09:42 | CON ---
DATE OF CONSULTATION: CONSULTING PHYSICIAN: Andrade Mullins MD HISTORY OF PRESENT ILLNESS: The patient is a 55-year-old woman, who presents with increasing dyspnea and lower extremity swelling. The patient has a long history of a cardiomyopathy. She was seen initially in 2013 with third-degree AV block. She subsequently had placement of electronic pacemaker. The patient subsequently developed a cardiomyopathy. She had an ejection fraction of only 20% to 25% in December of 2018. She subsequently had placement of an automatic implantable cardiac defibrillator. The patient was in her usual state of health when she ran out of several of her medications. She developed increasing lower extremity swelling and dyspnea. She reports severe pain in her right leg. The patient denied any fevers or chills. The patient denied having any chest discomfort. PAST MEDICAL HISTORY: 1. Cardiomyopathy. 2. Hypertension. 3. COPD. 4. Sleep apnea. 5. Congestive heart failure. 6. History of pulmonary embolus. MEDICATIONS: 1. Coreg 25 b.i.d. 2. Lasix 40 b.i.d. 3. Aspirin 81 daily. 4. Losartan 25 daily. 5. Protonix 40 daily. PAST SURGICAL HISTORY: , and gastric bypass. FAMILY HISTORY: Positive family history of coronary artery disease. SOCIAL HISTORY: Former smoker. ALLERGIES: IBUPROFEN. PHYSICAL EXAMINATION: GENERAL: Obese woman, in no acute distress. VITAL SIGNS: Blood pressure of 94/50. NECK: No jugular venous distention. LUNGS: Crackles in both lung wills. HEART: Regular rate and rhythm. Normal S1 and S2. No murmurs. ABDOMEN: Nondistended. EXTREMITIES: Severe bilateral edema. VASCULAR: Radial pulse 2+. LABORATORY DATA: Sodium 142, potassium 4.2, chloride 97, bicarbonate 33, BUN 27, and creatinine 0.95. Troponin was 0.076. BNP was 185. White blood cell count is 4.8, hemoglobin 12.3, hematocrit 40.8, and platelets are 208. EKG electronic ventricular pacemaker. Chest x-ray cardiomegaly with mild pulmonary edema. IMPRESSION: 1. Congestive heart failure. 2. History of cardiomyopathy. 3. Possible cellulitis. 4. Chronic obstructive pulmonary disease. 5. History of biventricular automatic implantable cardioverter defibrillator placement. 6. Hypertension. 7. Noncompliance. PLAN: This patient has congestive heart failure. She states she ran out of her medications including her Lasix several days ago. She started developing lower extremity swelling. The patient will be diuresed with Lasix. Her blood pressure is low, so her losartan has been held. We will follow this patient with you through her hospitalization. Job ID: [id number] [facility] HOSPITALSukhwinder
[2020-08-21] MEDS: Furosemide 20 MG/2 ML VIAL SLOW IVP SCH (15:23)
--- NOTE | 2020-08-21 23:04 | PDOC.HOSPP ---
- Subjective Encounter Date: 08/21/20 Encounter Time: 11:00 Subjective: Patient's seen and examined for congestive heart failure exacerbation. Continues to have shortness of breath. No chest pain or palpitations. No fever or chills. - Objective Vital Signs & Weight: Vital Signs (12 hours) Temp Pulse Resp BP BP Pulse Ox 08/21/20 22:55 68 97/52 L 08/21/20 19:32 97.7 F 84 18 107/61 100 08/21/20 18:39 70 16 92 L 08/21/20 15:00 98.1 F 69 14 103/60 100 08/21/20 11:37 97.8 F 84 19 107/63 96 Weight Admit Weight 210 lb 14.4 oz Weight 199 lb 4.8 oz I&O: 08/20/20 08/21/20 08/22/20 06:59 06:59 06:59 Intake Total 860 1080 980 Output Total 100 1400 1200 Balance 760 320 220 Result Diagrams: 08/22/20 04:14 08/22/20 04:14 Additional Labs: Abnormal Lab Results - Last 48 hrs 08/20/20 03:28: Chloride 97 L, Carbon Dioxide 37 H, BUN 29 H 08/20/20 03:28: MCH 26.6 L, MCHC 30.9 L, RDW 15.8 H, Neutrophils % 77.6 H, Lymphocytes % 12.3 L, Lymphocytes # 0.9 L, Monocytes # 0.7 H 08/21/20 04:10: Chloride 97 L, Carbon Dioxide 33 H, BUN 27 H 08/21/20 04:10: MCH 26.0 L, MCHC 30.0 L, RDW 15.5 H, Monocytes % 12.7 H, Lymphocytes # 1.1 L, Monocytes # 0.6 H Microbiology - Entire Visit 08/19/20 12:05 Venous blood - Right Arm Blood Culture - Preliminary NO GROWTH AT 48 HOURS 08/19/20 12:05 Venous blood - Left Arm Blood Culture - Preliminary NO GROWTH AT 48 HOURS 08/18/20 04:35 Venous blood - Right Hand Blood Culture - Preliminary Presumptive Corynebacterium sp Coagulase Neg Staphylococcus 08/18/20 04:30 Venous blood - Left Hand Blood Culture - Preliminary NO GROWTH AT 48 HOURS EKG Reviewed by me: Yes (Paced rhythm on telemetry) Hospitalist ROS - Review of Systems Constitutional: denies: fever, chills, sweats, weakness, malaise, other Gastrointestinal: denies: nausea, vomiting, abdominal pain, diarrhea, constipation, melena, hematochezia, other - Medication Medications: Active Medications Generic Name Dose Route Start Last Admin Trade Name Freq PRN Reason Stop Dose Admin Albuterol/Ipratropium 3 ml 08/18/20 07:00 08/21/20 18:39 Ipratropium/Albuterol Sulfate 3 Ml Neb NEB 3 ml [id number] RADHA Administration Calcium Carbonate 1,000 mg 08/19/20 11:24 08/20/20 09:13 Calcium Carbonate 500 Mg Chewtab PO 1,000 mg Q4H PRN Administration Heartburn or Indigestion Cephalexin 500 mg 08/20/20 23:59 08/21/20 17:43 Cephalexin 250 Mg Cap PO 500 mg Q6HR RADHA Administration Famotidine 20 mg 08/19/20 21:00 08/21/20 20:22 Famotidine 20 Mg Tab PO 20 mg BID RADHA Administration Furosemide 40 mg 08/21/20 14:00 08/21/20 15:23 Furosemide 20 Mg/2 Ml Vial SLOW IVP 40 mg 0600,1400 RADHA Administration Heparin Sodium (Porcine) 5,000 units 08/19/20 15:00 08/21/20 20:23 Heparin 5,000 Units/Ml Vial SC 5,000 units TID RADHA Administration Mometasone Furoate/Formoterol Fumar 2 puff 08/20/20 18:30 08/21/20 18:40 Mometasone 200 Mcg/Formoterol 5 Mcg 120 Puff Inhaler INH 2 puff BID-RT RADHA Administration Ondansetron HCl 4 mg 08/19/20 11:24 08/20/20 09:13 Ondansetron Odt 4 Mg Tab PO 4 mg Q6H PRN Administration Nausea/Vomiting Saccharomyces Boulardii 250 mg 08/20/20 09:00 08/21/20 08:49 Saccharomyces Boulardii 250 Mg Cap PO 250 mg DAILY RADHA Administration Sodium Chloride 10 ml 08/18/20 09:00 08/21/20 20:23 Flush - Normal Saline 10 Ml Syringe IVF 10 ml Q12HR RADHA Administration - Exam General Appearance: NAD Neck: supple, no JVD Heart: RRR, no gallops Respiratory: no wheezes, no ronchi Gastrointestinal: non-tender, normal bowel sounds Hosp A/P - Plan DVT proph w/SCDs Acute on chronic systolic/diastolic heart failure exacerbation COPD exacerbation Acute on chronic hypoxic respiratory failure due to above Bilateral lower extremity venous stasis with cellulitisleft more than right Obesity with a BMI 36.4 Anxiety History of Wernicke's encephalopathy Former smoker CKD stage II Suspected sleep apnea Chronic hypoxic respiratory failure on 2 L nasal cannula S/p AICD Plan: Continue IV Lasix per cardiology. Cardiology input appreciated. Echocardiogram today showed ejection fraction 55 to 60% with moderate concentric left ventricular hypertrophy and diastolic dysfunction. Recheck labs in a.m. Continue fluid restriction. Monitor input and output closely. Continue oral antibiotics for cellulitis.
[2020-08-21 23:23] LABS: Anion Gap 10 mmol/L (10-20); Carbon Dioxide 37 mmol/L (22-29); Chloride 99 mmol/L (98-107); Magnesium 2.3 mg/dL (1.6-2.6); Potassium 4.4 mmol/L (3.5-5.1); Sodium 142 mmol/L (136-145)
[2020-08-22] MEDS: Cephalexin 250 MG CAP PO SCH ×3 (05:07→17:21)
[2020-08-22] MEDS: Furosemide 20 MG/2 ML VIAL SLOW IVP SCH (05:14)
[2020-08-22 05:33] LABS: Anion Gap 14 mmol/L (10-20); BUN (Urea Nitrogen) 29 mg/dL (9.8-20.1); Calc. Creatinine Clearance 109 mL/min (70-130); Calcium 8.2 mg/dL (7.8-10.44); Carbon Dioxide 32 mmol/L (22-29); Chloride 99 mmol/L (98-107); Glucose 77 mg/dL (70-105); Magnesium 2.2 mg/dL (1.6-2.6); Potassium 4.4 mmol/L (3.5-5.1); Sodium 141 mmol/L (136-145)
[2020-08-22 05:39] LABS: #Basophils 0.1 thou/uL (0.0-0.2); #Eosinphils 0.2 thou/uL (0.0-0.7); #Lymphocytes 0.9 thou/uL (1.20-3.40); #Monocytes 0.6 thou/uL (0.11-0.59); #Neutrophils 2.4 thou/uL (1.40-6.50); %Basophils 1.2 % (0.0-1.0); %Eosinophils 5.1 % (0.0-10.0); %Lymphocytes 22.1 % (21.0-51.0); %Monocytes 13.5 % (0.0-10.0); Hemoglobin 12.5 g/dL (12.0-16.0); Mean Corpuscular HGB CONC 29.7 g/dL (32.0-36.0); Mean Corpuscular Hemoglobin 25.7 pg (27.0-31.0); Mean Corpuscular Volume 86.4 fL (78.0-98.0); Mean Platelet Volume 9.2 fL (7.4-10.4); Platelet Count 185 thou/uL (130-400); RBC Distribution Width 15.6 % (11.5-14.5); Red Blood Cell (RBC) Count 4.88 mill/uL (4.20-5.40); White Blood Cell (WBC) Count 4.2 thou/uL (4.8-10.8)
[2020-08-22] MEDS: Mometasone 200 MCG/Formoterol 5 MCG 120 PUFF INHALER INH SCH ×2 (07:02→19:13)
[2020-08-22] MEDS: Saccharomyces boulardii 250 MG CAP PO SCH (08:50)
[2020-08-22] MEDS: Famotidine 20 MG TAB PO SCH ×2 (08:50→20:14)
[2020-08-22] MEDS: Heparin 5,000 UNITS/ML VIAL SC SCH ×3 (08:50→20:14)
--- NOTE | 2020-08-22 09:56 | RAD ---
PORTABLE CHEST: Date: 08/22/2020 HISTORY: Congestive failure. COMPARISON: 08/18/2020 exam. FINDINGS: Heart size is enlarged. Pulmonary vessels are engorged. Some increased parahilar lung markings would indicate some element of edema. There are also some more peripheral lung changes. Associated infiltra te is not excluded. IMPRESSION: Cardiomegaly with findings that would suggest some element of pulmonary edema. However, some of these parenchymal changes are also slightly more peripheral in nature, particularly in the right lung. The possibility of coexistent pneumonia is not excluded. Clinical correlation is recommended. POS: OFF
[2020-08-22] MEDS: Ondansetron ODT 4 MG TAB PO PRN (17:28)
[2020-08-23] MEDS: Cephalexin 250 MG CAP PO SCH ×4 (00:32→17:39)
[2020-08-23] MEDS: Mometasone 200 MCG/Formoterol 5 MCG 120 PUFF INHALER INH SCH ×2 (07:10→19:29)
[2020-08-23] MEDS: Saccharomyces boulardii 250 MG CAP PO SCH (09:23)
[2020-08-23] MEDS: Famotidine 20 MG TAB PO SCH ×2 (09:23→20:54)
[2020-08-23] MEDS: Heparin 5,000 UNITS/ML VIAL SC SCH ×3 (09:23→20:54)
[2020-08-23] MEDS: Furosemide 40 MG TAB PO SCH (09:24)
[2020-08-23] MEDS ORDERED: Metolazone 5 MG TAB PO SCH (10:30)
[2020-08-23] MEDS ORDERED: Furosemide 40 MG/4 ML VIAL SLOW IVP SCH (10:30)
--- NOTE | 2020-08-23 10:44 | PDOC.HOSPP ---
- Subjective Encounter Date: 08/22/20 Encounter Time: 15:30 Subjective: Patient seen and examined for respiratory failure/CHF exacerbation. Denies any chest pain or palpitations. Short of breath on [id number] exertion. Denies any palpitations - Objective Vital Signs & Weight: Vital Signs (12 hours) Temp Pulse Resp BP BP BP BP 08/23/20 08:50 97.9 F 68 16 101/63 99/61 104/61 08/23/20 07:12 60 16 08/23/20 04:43 98.1 F 68 16 106/69 08/23/20 00:36 70 97/54 L 08/22/20 23:06 65 16 Pulse Ox 08/23/20 08:50 97 08/23/20 07:12 08/23/20 04:43 100 08/23/20 00:36 99 08/22/20 23:06 95 Weight Admit Weight 210 lb 14.4 oz Weight 201 lb 4.8 oz I&O: 08/22/20 08/23/20 08/24/20 06:59 06:59 06:59 Intake Total 1330 1360 Output Total 1200 Balance 130 1360 Result Diagrams: 08/22/20 04:14 08/22/20 04:14 EKG Reviewed by me: Yes (Paced rhythm on telemetry) Hospitalist ROS - Review of Systems Cardiovascular: denies: chest pain, palpitations, orthopnea, paroxysmal noc. dyspnea, edema, light headedness, other Gastrointestinal: denies: nausea, vomiting, abdominal pain, diarrhea, constipation, melena, hematochezia, other - Medication Medications: Active Medications Generic Name Dose Route Start Last Admin Trade Name Freq PRN Reason Stop Dose Admin Albuterol/Ipratropium 3 ml 08/18/20 07:00 08/23/20 07:12 Ipratropium/Albuterol Sulfate 3 Ml Neb NEB 3 ml [id number] RADHA Administration Calcium Carbonate 1,000 mg 08/19/20 11:24 08/20/20 09:13 Calcium Carbonate 500 Mg Chewtab PO 1,000 mg Q4H PRN Administration Heartburn or Indigestion Cephalexin 500 mg 08/20/20 23:59 08/23/20 05:06 Cephalexin 250 Mg Cap PO 500 mg Q6HR RADHA Administration Famotidine 20 mg 08/19/20 21:00 08/23/20 09:23 Famotidine 20 Mg Tab PO 20 mg BID RADHA Administration Furosemide 40 mg 08/23/20 07:30 08/23/20 09:24 Furosemide 40 Mg Tab PO Not Given DAILY-AC RDAHA Heparin Sodium (Porcine) 5,000 units 08/19/20 15:00 08/23/20 09:23 Heparin 5,000 Units/Ml Vial SC 5,000 units TID RADHA Administration Mometasone Furoate/Formoterol Fumar 2 puff 08/20/20 18:30 08/23/20 07:10 Mometasone 200 Mcg/Formoterol 5 Mcg 120 Puff Inhaler INH 2 puff BID-RT RADHA Administration Ondansetron HCl 4 mg 08/19/20 11:24 08/22/20 17:28 Ondansetron Odt 4 Mg Tab PO 4 mg Q6H PRN Administration Nausea/Vomiting Saccharomyces Boulardii 250 mg 08/20/20 09:00 08/23/20 09:23 Saccharomyces Boulardii 250 Mg Cap PO 250 mg DAILY RADHA Administration Sodium Chloride 10 ml 08/18/20 09:00 08/23/20 09:23 Flush - Normal Saline 10 Ml Syringe IVF 10 ml Q12HR RADHA Administration - Exam General Appearance: ill appearing Heart: RRR, no gallops Respiratory: no wheezes, rhonchi Gastrointestinal: non-tender, normal bowel sounds Extremities: no cyanosis, no clubbing Neurological: no new deficit Psychiatric: normal affect, A&O x 3 Hosp A/P - Plan DVT proph w/SCDs Acute on chronic systolic/diastolic heart failure exacerbation COPD exacerbation Acute on chronic hypoxic respiratory failure due to above Bilateral lower extremity venous stasis with cellulitisleft more than right Obesity with a BMI 36.4 Anxiety History of Wernicke's encephalopathy Former smoker CKD stage II Suspected sleep apnea Chronic hypoxic respiratory failure on 2 L nasal cannula S/p AICD Plan: Chest x-ray showed pulmonary vascular congestion. Continue Lasix. Continue antibiotics for cellulitis. Continue fluid restriction. Counseled on congestive heart failure. Continue cardiac rehab.
[2020-08-23 13:54] VITALS: BMI 35.6
--- NOTE | 2020-08-23 23:55 | PDOC.HOSPP ---
- Subjective Encounter Date: 08/23/20 Encounter Time: 14:00 Subjective: Patient seen and examined for respiratory failure. Still complains of shortness of breath. No fever or chills. Denies any nausea, palpitations or syncope. - Objective Vital Signs & Weight: Vital Signs (12 hours) Temp Pulse Resp BP BP Pulse Ox 08/23/20 20:46 99.3 F 69 18 110/66 96 08/23/20 19:28 71 16 93 L 08/23/20 14:53 97.7 F 68 15 100/61 97 08/23/20 13:53 70 16 Weight Admit Weight 210 lb 14.4 oz Weight 201 lb 4.8 oz I&O: 08/22/20 08/23/20 08/24/20 06:59 06:59 06:59 Intake Total 1330 1360 1090 Output Total 1200 825 Balance 130 1360 265 Result Diagrams: 08/22/20 04:14 08/22/20 04:14 EKG Reviewed by me: Yes (Paced rhythm on telemetry) Hospitalist ROS - Review of Systems Cardiovascular: reports: orthopnea, edema. denies: chest pain, palpitations, paroxysmal noc. dyspnea, light headedness, other Gastrointestinal: denies: nausea, vomiting, abdominal pain, diarrhea, constipation, melena, hematochezia, other - Medication Medications: Active Medications Generic Name Dose Route Start Last Admin Trade Name Freq PRN Reason Stop Dose Admin Albuterol/Ipratropium 3 ml 08/18/20 07:00 08/23/20 19:28 Ipratropium/Albuterol Sulfate 3 Ml Neb NEB 3 ml [id number] RADHA Administration Calcium Carbonate 1,000 mg 08/19/20 11:24 08/20/20 09:13 Calcium Carbonate 500 Mg Chewtab PO 1,000 mg Q4H PRN Administration Heartburn or Indigestion Cephalexin 500 mg 08/20/20 23:59 08/23/20 17:39 Cephalexin 250 Mg Cap PO 500 mg Q6HR RADHA Administration Famotidine 20 mg 08/19/20 21:00 08/23/20 20:54 Famotidine 20 Mg Tab PO 20 mg BID RADHA Administration Furosemide 40 mg 08/23/20 07:30 08/23/20 09:24 Furosemide 40 Mg Tab PO Not Given DAILY-AC RADHA Heparin Sodium (Porcine) 5,000 units 08/19/20 15:00 08/23/20 20:54 Heparin 5,000 Units/Ml Vial SC 5,000 units TID RADHA Administration Mometasone Furoate/Formoterol Fumar 2 puff 08/20/20 18:30 08/23/20 19:29 Mometasone 200 Mcg/Formoterol 5 Mcg 120 Puff Inhaler INH 2 puff BID-RT RADHA Administration Ondansetron HCl 4 mg 08/19/20 11:24 08/22/20 17:28 Ondansetron Odt 4 Mg Tab PO 4 mg Q6H PRN Administration Nausea/Vomiting Saccharomyces Boulardii 250 mg 08/20/20 09:00 08/23/20 09:23 Saccharomyces Boulardii 250 Mg Cap PO 250 mg DAILY RADHA Administration Sodium Chloride 10 ml 08/18/20 09:00 08/23/20 20:55 Flush - Normal Saline 10 Ml Syringe IVF 10 ml Q12HR RADHA Administration - Exam General Appearance: NAD Neck: supple Heart: RRR, no gallops Respiratory: rales, rhonchi, tachypneic (On ambulation) Gastrointestinal: soft, non-tender, normal bowel sounds, no guarding, no rigidity Extremities: no cyanosis, 1+ LE edema Musculoskeletal: generalized weakness Psychiatric: A&O x 3 Hosp A/P - Plan DVT proph w/SCDs Acute on chronic systolic/diastolic heart failure exacerbation COPD exacerbation Acute on chronic hypoxic respiratory failure due to above Bilateral lower extremity venous stasis with cellulitisleft more than right Obesity with a BMI 36.4 Anxiety History of Wernicke's encephalopathy Former smoker CKD stage II Suspected sleep apnea Chronic hypoxic respiratory failure on 2 L nasal cannula S/p AICD Plan: 1 dose IV Lasix with metolazone today. Continue oral Lasix. Continue oral Keflex. Continue fluid restriction. A.m. labs. Continue cardiac rehab. Continue other medications as above. See planning. Home O2 evaluation in a.m.
[2020-08-24] MEDS: Cephalexin 250 MG CAP PO SCH ×3 (00:41→11:53)
[2020-08-24 05:28] LABS: Anion Gap 12 mmol/L (10-20); BUN (Urea Nitrogen) 25 mg/dL (9.8-20.1); Calc. Creatinine Clearance 113 mL/min (70-130); Calcium 8.7 mg/dL (7.8-10.44); Carbon Dioxide 33 mmol/L (22-29); Chloride 98 mmol/L (98-107); Glucose 78 mg/dL (70-105); Magnesium 2.1 mg/dL (1.6-2.6); Potassium 4.3 mmol/L (3.5-5.1); Sodium 139 mmol/L (136-145)
[2020-08-24] MEDS: Mometasone 200 MCG/Formoterol 5 MCG 120 PUFF INHALER INH SCH (07:09)
[2020-08-24] MEDS: Heparin 5,000 UNITS/ML VIAL SC SCH ×2 (08:31→16:41)
[2020-08-24] MEDS: Saccharomyces boulardii 250 MG CAP PO SCH (08:31)
[2020-08-24] MEDS: Furosemide 40 MG TAB PO SCH (08:31)
[2020-08-24] MEDS: Famotidine 20 MG TAB PO SCH (08:31)
[2020-08-24 10:59] VITALS: TEMP 97.8
[2020-08-24 12:07] VITALS: BP 118/70
--- NOTE | 2020-08-24 20:06 | PDOC.DS.DS ---
Provider - Provider Date of Admission: 08/18/20 05:04 Date of Discharge: 08/24/20 Admitting Provider: Catherine Cervantes MD Consultations: Cardiology, General Surgery Primary Care Physician: [facility] Course - Hospital Course Hospital Course: Patient is a 55 female with congestive heart failure, chronic respiratory failure on home oxygen presented to the emergency room on 08/19 with shortness of breath along with right leg pain. Please refer to the history and physical for further details. The patient was admitted to the hospital with a diagnosis of congestive heart failure/COPD exacerbation along with bilateral lower extremity cellulitis. She was started on diuretics along with empiric antibiotics. Her weight on admission was 210 pounds and at discharge is 198. Echocardiogram showed ejection fraction 55 to 60% with moderate concentric left ventricle hypertrophy, mild mitral regurgitation and diastolic dysfunction. She was also evaluated by cardiology. FRANCISCA inhibitor/ARB/beta-blockers to be avoided due to hypotension. Antibiotics will be changed to Keflex. She appears stable for discharge. Repeat electrolyte check after 1 week is recommended primary care physician advised to follow. Final diagnosis: Acute on chronic systolic/diastolic heart failure exacerbation COPD exacerbation Acute on chronic hypoxic respiratory failure due to above Bilateral lower extremity venous stasis with cellulitisleft more than right Obesity with a BMI 36.4 Anxiety History of Wernicke's encephalopathy Former smoker CKD stage II Suspected sleep apnea Chronic hypoxic respiratory failure on 2 L nasal cannula S/p AICD Resuscitation Status: 08/19/20 11:24 Resuscitation Status Routine Resuscitation Status: FULL: Full Resuscitation - Labs Lab Results: 08/22/20 04:14 08/24/20 04:03 Abnormal Lab Results - Last 48 hrs 08/24/20 04:03: Carbon Dioxide 33 H, BUN 25 H Microbiology - Entire Visit 08/19/20 12:05 Venous blood - Right Arm Blood Culture - Final NO GROWTH IN 5 DAYS 08/19/20 12:05 Venous blood - Left Arm Blood Culture - Final NO GROWTH IN 5 DAYS 08/18/20 04:30 Venous blood - Left Hand Blood Culture - Final NO GROWTH IN 5 DAYS 08/18/20 04:35 Venous blood - Right Hand Blood Culture - Final Presumptive Corynebacterium sp Coagulase Neg Staphylococcus - Physical Exam Vitals: Vital Signs (12 hours) Temp Pulse Pulse Pulse Resp BP BP 08/24/20 11:16 76 80 118/70 104/61 08/24/20 10:58 97.8 F 72 16 BP Pulse Ox Pulse Ox Pulse Ox 08/24/20 11:16 92 L 97 08/24/20 10:58 108/68 97 Weight Admit Weight 210 lb 14.4 oz Weight 198 lb 11.2 oz Physical Exam: The patient was seen and examined on the day of discharge. Plan - Discharge Medications Prescriptions: Cephalexin [Keflex] 500 mg PO Q6HR #20 cap Furosemide [Lasix] 40 mg PO DAILY-AC #30 tab Home Medications: Medication Instructions Recorded Confirmed Type Pantoprazole [Protonix] 40 mg PO DAILY 08/18/20 08/18/20 History Cephalexin [Keflex] 500 mg PO Q6HR #20 cap 08/24/20 Rx Furosemide [Lasix] 40 mg PO DAILY-AC #30 tab 08/24/20 Rx Allergies: ibuprofen Allergy (Verified 08/18/20 09:43) "TRIGGERS HER ASTHMA" Pt states, "I swell up" when she takes ibuprofen. - Discharge Instructions Discharge Instructions:: BMP after 1 week - PCP to arrange/follow - Follow up Plan Referrals: [facility] Outpatient Wound Care Dept, [facility] [Other] (Contact the outpatient wound care dept for outpatient appt. ) [facility] - [place] [Outside] - 7 Days (Your doctor has ordered Outpatient Cardiac Rehab for you to begin within 1-2 weeks after you go home from the hospital. The location nearest to you is the [facility]. The front office in [place] will call you in 1-2 days to get you scheduled for your evaluation. If you do not receive a call, please reach out to them at [phone] and request an appointment.) Moisés Gerber MD [Active] - 7 Days [facility] [Primary Care Provider] - 7 Days Disposition: HOME Quality - Care Measures CORE MEASURES:: N/A
== END 2020-08-24 16:25 | disposition home or self-care (01) | DRG 602 ==
LOC: ERS 03:07 → 2NO 05:04
PROVIDERS: ADMIT Internal Medicine; ATTEND Internal Medicine
DX: L03.115 Cellulitis of right lower limb (principal); J96.21 Acute and chronic respiratory failure with hypoxia; I50.43 Acute on chronic combined systolic (congestive) and diastolic (congestive) heart failure; I13.0 Hypertensive heart and chronic kidney disease with heart failure and stage 1 through stage 4 chronic kidney disease, or unspecified chronic kidney disease; J44.1 Chronic obstructive pulmonary disease with (acute) exacerbation; I42.9 Cardiomyopathy, unspecified; L03.116 Cellulitis of left lower limb; Z20.828 Contact with and (suspected) exposure to other viral communicable diseases; I87.8 Other specified disorders of veins; N18.2 Chronic kidney disease, stage 2 (mild); E11.22 Type 2 diabetes mellitus with diabetic chronic kidney disease; E66.01 Morbid (severe) obesity due to excess calories; F41.9 Anxiety disorder, unspecified; F32.9 Major depressive disorder, single episode, unspecified; G47.33 Obstructive sleep apnea (adult) (pediatric); I95.9 Hypotension, unspecified; Z98.84 Bariatric surgery status; Z87.891 Personal history of nicotine dependence; Z99.81 Dependence on supplemental oxygen; Z68.35 Body mass index [BMI] 35.0-35.9, adult; Z86.711 Personal history of pulmonary embolism; Z91.19 Patient's noncompliance with other medical treatment and regimen; Z95.810 Presence of automatic (implantable) cardiac defibrillator
CPT/HCPCS: 36415; 71045; 80048; 80053; 82553; 83735; 83880; 84443; 84484; 85025; 87040; 87149; 87635; 93005; 93306; 93798; 94640; 96365; 96375; 97139; J1644; J1940; J2270; J2405; J2543; J2920; J3370; J3490; J7620; Q0162; U0003

== ENCOUNTER 2021-05-24 19:30 | Outpatient (CLI) | payer MEDICARE, MEDICAID | END 2021-05-24 19:31 | disposition home or self-care (01) | LOC: SLEEPLAB 19:30 | PROVIDERS: ATTEND Student in an Organized Health Care Education/Training Program | DX: G47.33 Obstructive sleep apnea (adult) (pediatric) (principal); I11.0 Hypertensive heart disease with heart failure; I50.9 Heart failure, unspecified; I25.10 Atherosclerotic heart disease of native coronary artery without angina pectoris; R53.83 Other fatigue; R40.0 Somnolence; E66.9 Obesity, unspecified; J44.9 Chronic obstructive pulmonary disease, unspecified; Z68.37 Body mass index [BMI] 37.0-37.9, adult; R09.02 Hypoxemia | CPT/HCPCS: 95810 ==

== ENCOUNTER 2021-06-06 09:55 | Outpatient (CLI) | payer MEDICARE, MEDICAID | END 2021-06-06 09:56 | disposition home or self-care (01) | LOC: BICMAMMO 09:55 | PROVIDERS: ATTEND Student in an Organized Health Care Education/Training Program | DX: Z12.31 Encounter for screening mammogram for malignant neoplasm of breast (principal); Z80.3 Family history of malignant neoplasm of breast | CPT/HCPCS: 77067 ==

== ENCOUNTER 2021-06-17 19:30 | Outpatient (CLI) | payer MEDICARE, MEDICAID | END 2021-06-17 19:31 | disposition home or self-care (01) | LOC: SLEEPLAB 19:30 | PROVIDERS: ATTEND Student in an Organized Health Care Education/Training Program | DX: G47.33 Obstructive sleep apnea (adult) (pediatric) (principal); R53.83 Other fatigue; I11.0 Hypertensive heart disease with heart failure; I50.9 Heart failure, unspecified; J44.9 Chronic obstructive pulmonary disease, unspecified; I25.10 Atherosclerotic heart disease of native coronary artery without angina pectoris; E66.9 Obesity, unspecified; Z68.37 Body mass index [BMI] 37.0-37.9, adult | CPT/HCPCS: 95811 ==

== ENCOUNTER 2023-10-02 00:26 | Emergency (ER) | payer MEDICAID, MEDICARE, OTHER, SELFPAY ==
[2023-10-02] MEDS ORDERED: Bacitracin 1 PK ONE (01:06)
[2023-10-02] MEDS ORDERED: HYDROcodone/Acetaminophen 5/325 mg Tablet ONE (01:19)
== END 2023-10-02 01:44 | disposition home or self-care (01) ==
LOC: ERS 00:26
DX: S81.802A Unspecified open wound, left lower leg, initial encounter (principal); L97.929 Non-pressure chronic ulcer of unspecified part of left lower leg with unspecified severity; J44.9 Chronic obstructive pulmonary disease, unspecified; I11.0 Hypertensive heart disease with heart failure; I50.9 Heart failure, unspecified; E11.9 Type 2 diabetes mellitus without complications; Z87.891 Personal history of nicotine dependence; X58.XXXA Exposure to other specified factors, initial encounter
CPT/HCPCS: 99283

== ENCOUNTER 2024-07-24 13:49 | Inpatient (IN) | payer MEDICARE, MEDICAID ==
[2024-07-24 14:43] LABS: Actual Bicarbonate (HCO3v) 32.8 mEq/L (22-28); Analyzer IN Cardio ER; Calcium, Ionized (venous) 1.05 mmol/L (1.16-1.32); Chloride (VBG) 97 mmol/L (98-106); Hematocrit-VBG 34 % (36.0-47.0); Hemoglobin (Hb) 11.6 g/dL (11.7-16.0); Sodium 141 mmol/L (133-146); pH (venous) 7.316 (7.32-7.43)
[2024-07-24 14:57] LABS: #Basophils 0.05 10x3/uL (0.0-0.2); %Eosinophils 1.8 % (0.0-10.0); %Lymphocytes 16.1 % (21.0-51.0); %Monocytes 7.2 % (0.0-10.0); %Neutrophils 73.5 % (42.0-75.0); Hematocrit 36.2 % (36.0-47.0); Hemoglobin 10.5 g/dL (12.0-16.0); Mean Corpuscular Hemoglobin 27.4 pg (27.0-31.0); Mean Corpuscular Volume 94.5 fL (78.0-98.0); Platelet Count 369 10x3/uL (130-400); RBC Distribution Width 20.9 % (11.5-14.5); Red Blood Cell (RBC) Count 3.83 mill/uL (4.20-5.40)
[2024-07-24 15:13] LABS: ALT (SGPT) 14 U/L (8-55); AST (SGOT) 19 U/L (5-34); Albumin 3.2 g/dL (3.5-5.0); Alkaline Phosphatase 122 U/L (40-110); Anion Gap 11 mmol/L (10-20); BUN (Urea Nitrogen) 22 mg/dL (9.8-20.1); Bilirubin, Total 0.5 mg/dL (0.2-1.2); Calc. Creatinine Clearance 0 mL/min (70-130); Calcium 8.3 mg/dL (7.8-10.44); Carbon Dioxide 34 mmol/L (22-29); Chloride 99 mmol/L (98-107); Estimated GFR 61; Globulin 3.6 g/dL (2.4-3.5); Glucose 80 mg/dL (70-105); Potassium 3.3 mmol/L (3.5-5.1); Protein, Total 6.8 g/dL (6.0-8.3); Sodium 141 mmol/L (136-145)
[2024-07-24 15:18] LABS: Troponin I 0.024 ng/mL (< 0.028)
[2024-07-24] MEDS ORDERED: Sodium Chloride 0.9% 100 ML ONE (16:45)
[2024-07-24] MEDS ORDERED: Piperacillin/Tazobactam 3.375 GM VIAL ONE (16:45)
[2024-07-24] MEDS ORDERED: Acetaminophen 325 MG TAB PO PRN (16:55)
[2024-07-24] MEDS ORDERED: Milrinone 20 MG in Sodium Chloride 0.9% 100 ML IVPB SCH (17:30)
[2024-07-24] MEDS ORDERED: Milrinone Lactate/D5W 20 MG in Premix 1 BAG IV SCH (17:45)
[2024-07-24 18:14] LABS: Lactic Acid 1.43 mmol/L (0.5-2.2)
[2024-07-24 18:24] LABS: Troponin I 0.026 ng/mL (< 0.028)
[2024-07-24] MEDS: Vancomycin 2 GM in Sodium Chloride 0.9% 500 ML IVPB ONE (22:51)
[2024-07-24 23:17] LABS: Troponin I 0.025 ng/mL (< 0.028)
[2024-07-24 23:20] LABS: Anion Gap 13 mmol/L (10-20); BUN (Urea Nitrogen) 19 mg/dL (9.8-20.1); Calc. Creatinine Clearance 132 mL/min (70-130); Calcium 8.1 mg/dL (7.8-10.44); Carbon Dioxide 29 mmol/L (22-29); Chloride 102 mmol/L (98-107); Estimated GFR 81; Glucose 105 mg/dL (70-105); Potassium 3.6 mmol/L (3.5-5.1); Sodium 140 mmol/L (136-145)
[2024-07-24] MEDS: Furosemide 40 MG (4 mL) VIAL SLOW IVP SCH ×3 (23:52→23:59)
[2024-07-24] MEDS: Famotidine/PF 20 mg/2ml Vial SLOW IVP SCH (23:53)
[2024-07-24] MEDS: Potassium Chloride 20 MEQ in Premix 1 BAG IVPB SCH (23:53)
[2024-07-25] MEDS: Potassium Chloride 20 MEQ in Premix 1 BAG IVPB SCH
[2024-07-25 05:27] LABS: Anion Gap 10 mmol/L (10-20); BUN (Urea Nitrogen) 17 mg/dL (9.8-20.1); Calc. Creatinine Clearance 152 mL/min (70-130); Calcium 8.1 mg/dL (7.8-10.44); Carbon Dioxide 34 mmol/L (22-29); Chloride 99 mmol/L (98-107); Estimated GFR 95; Glucose 106 mg/dL (70-105); Potassium 3.7 mmol/L (3.5-5.1); Sodium 139 mmol/L (136-145)
[2024-07-25 05:33] LABS: Hematocrit 33.9 % (36.0-47.0); Hemoglobin 9.8 g/dL (12.0-16.0); Mean Corpuscular HGB CONC 28.9 g/dL (32.0-36.0); Mean Corpuscular Hemoglobin 27.6 pg (27.0-31.0); Mean Corpuscular Volume 95.5 fL (78.0-98.0); Mean Platelet Volume 9.4 fL (7.4-10.4); Platelet Count 350 10x3/uL (130-400); RBC Distribution Width 20.4 % (11.5-14.5); Red Blood Cell (RBC) Count 3.55 mill/uL (4.20-5.40)
[2024-07-25 06:09] LABS: Anisocytosis SLIGHT = 6-15 cells HPF (0-5); Band 4 % (5-11); Elliptocytes SLIGHT = 2-5 cells HPF (0-1); Hypochromia SLIGHT = 6-15 cells HPF (0-5); Large Platelets 5.9 % (0-5); Lymphocytes 8 % (21-51); Monocytes 5 % (0-10); Neutrophil 82 % (42-75); Platelet Adequacy Comment Platelets Normal; Polychromasia SLIGHT = 2-3 cells HPF (0-2)
[2024-07-25] MEDS ORDERED: Enoxaparin 40 MG (0.4 mL) SYRINGE SC SCH (09:00)
[2024-07-25] MEDS: Amiodarone 200 MG TAB PO SCH (09:32)
[2024-07-25] MEDS: Apixaban 5 MG TAB PO SCH (09:32)
[2024-07-25] MEDS: Cholecalciferol 1,000 UNITS (25 MCG) TAB PO SCH (09:32)
[2024-07-25] MEDS: Furosemide 100 MG (10 mL) VIAL SLOW IVP SCH (09:33)
[2024-07-25] MEDS: Pantoprazole DR 40 MG TAB PO SCH (09:33)
[2024-07-25] MEDS: FLU (Fluarix Triv) TS24-25(6MOS UP)/PF 45 MCG/0.5 ML Syringe IM ONE (09:37)
[2024-07-25] MEDS: MULTIVIT/IRON SULF/FOLIC ACID 1 EACH TAB PO SCH (11:19)
[2024-07-26 04:47] LABS: Anion Gap 14 mmol/L (10-20); BUN (Urea Nitrogen) 22 mg/dL (9.8-20.1); Calc. Creatinine Clearance 104 mL/min (70-130); Calcium 8.3 mg/dL (7.8-10.44); Carbon Dioxide 29 mmol/L (22-29); Chloride 99 mmol/L (98-107); Estimated GFR 62; Glucose 71 mg/dL (70-105); Potassium 3.9 mmol/L (3.5-5.1); Sodium 138 mmol/L (136-145)
[2024-07-26 07:48] LABS: #Basophils 0.06 10x3/uL (0.0-0.2); %Eosinophils 1.7 % (0.0-10.0); %Lymphocytes 21.3 % (21.0-51.0); %Monocytes 9.4 % (0.0-10.0); %Neutrophils 65.9 % (42.0-75.0); Hematocrit 34.2 % (36.0-47.0); Hemoglobin 10.2 g/dL (12.0-16.0); Mean Corpuscular HGB CONC 29.8 g/dL (32.0-36.0); Mean Corpuscular Hemoglobin 27.7 pg (27.0-31.0); Mean Corpuscular Volume 92.9 fL (78.0-98.0); Mean Platelet Volume 9.4 fL (7.4-10.4); Platelet Count 421 10x3/uL (130-400); RBC Distribution Width 20.6 % (11.5-14.5); Red Blood Cell (RBC) Count 3.68 mill/uL (4.20-5.40)
[2024-07-26 14:20] VITALS: BMI 44.5
[2024-07-26] MEDS: Milrinone Lactate/D5W 20 MG in Premix 1 BAG IV SCH (22:56)
[2024-07-27 04:10] LABS: #Basophils 0.05 10x3/uL (0.0-0.2); %Basophils 0.9 % (0.0-1.0); %Eosinophils 2.3 % (0.0-10.0); %Lymphocytes 16.9 % (21.0-51.0); %Monocytes 9.8 % (0.0-10.0); %Neutrophils 69.6 % (42.0-75.0); Mean Corpuscular HGB CONC 28.6 g/dL (32.0-36.0); Mean Corpuscular Hemoglobin 27.6 pg (27.0-31.0); Mean Corpuscular Volume 96.7 fL (78.0-98.0); Mean Platelet Volume 9.2 fL (7.4-10.4); Platelet Count 345 10x3/uL (130-400); RBC Distribution Width 20.4 % (11.5-14.5); Red Blood Cell (RBC) Count 3.62 mill/uL (4.20-5.40)
[2024-07-27 04:14] LABS: ALT (SGPT) 11 U/L (8-55); AST (SGOT) 14 U/L (5-34); Albumin 2.7 g/dL (3.5-5.0); Alkaline Phosphatase 86 U/L (40-110); Anion Gap 13 mmol/L (10-20); BUN (Urea Nitrogen) 20 mg/dL (9.8-20.1); Bilirubin, Total 0.4 mg/dL (0.2-1.2); Calc. Creatinine Clearance 135 mL/min (70-130); Calcium 8.2 mg/dL (7.8-10.44); Carbon Dioxide 29 mmol/L (22-29); Chloride 103 mmol/L (98-107); Estimated GFR 83; Globulin 3.1 g/dL (2.4-3.5); Glucose 80 mg/dL (70-105); Magnesium 2.1 mg/dL (1.6-2.6); Potassium 3.8 mmol/L (3.5-5.1); Protein, Total 5.8 g/dL (6.0-8.3); Sodium 141 mmol/L (136-145)
[2024-07-27] MEDS: Dapagliflozin Propanediol 10 MG TAB PO SCH (09:52)
[2024-07-27] MEDS: Amiodarone 200 MG TAB PO SCH (09:53)
[2024-07-27] MEDS: Furosemide 40 MG (4 mL) VIAL SLOW IVP SCH (09:53)
[2024-07-27] MEDS: Potassium Chloride 10 MEQ TAB PO SCH (16:11)
[2024-07-27 17:05] LABS: Influenza A by NAA Not Detected (NotDetected); Influenza B by NAA Not Detected (NotDetected); SARS-CoV-2 NAA Rapid Test Not Detected (NotDetected)
[2024-07-27] MEDS: Ipratropium/Albuterol 3 ML NEB NEB PRN (21:26)
[2024-07-28] MEDS ORDERED: Milrinone Lactate/D5W 20 MG/100 ML BAG ONE (06:11)
[2024-07-28] MEDS ORDERED: Spironolactone 25 MG TAB ONE (09:11)
[2024-07-28] MEDS ORDERED: MULTIVIT/IRON SULF/FOLIC ACID 1 EACH TAB PO ONE (09:11)
[2024-07-28] MEDS ORDERED: Pantoprazole DR 40 MG TAB ONE (09:11)
[2024-07-28] MEDS ORDERED: Apixaban 5 MG TAB ONE (09:11)
[2024-07-28] MEDS ORDERED: Torsemide 20 MG TAB ONE (09:11)
[2024-07-28] MEDS ORDERED: Cholecalciferol 1,000 UNITS (25 MCG) TAB ONE (09:11)
[2024-07-28] MEDS ORDERED: Potassium Chloride 10 MEQ TAB ONE (09:11)
[2024-07-28] MEDS ORDERED: Amiodarone 200 MG TAB ONE (09:11)
[2024-07-29] MEDS: Spironolactone 25 MG TAB PO SCH (18:03)
[2024-07-29] MEDS: Torsemide 20 MG TAB PO SCH (18:06)
[2024-07-30 04:48] LABS: #Basophils 0.04 10x3/uL (0.0-0.2); %Basophils 0.7 % (0.0-1.0); %Eosinophils 2.1 % (0.0-10.0); %Lymphocytes 15.8 % (21.0-51.0); Hematocrit 33.6 % (36.0-47.0); Hemoglobin 9.7 g/dL (12.0-16.0); Mean Corpuscular HGB CONC 28.9 g/dL (32.0-36.0); Mean Corpuscular Hemoglobin 27.2 pg (27.0-31.0); Mean Corpuscular Volume 94.4 fL (78.0-98.0); Mean Platelet Volume 9.3 fL (7.4-10.4); Platelet Count 405 10x3/uL (130-400); RBC Distribution Width 19.9 % (11.5-14.5); Red Blood Cell (RBC) Count 3.56 mill/uL (4.20-5.40)
[2024-07-30 05:08] LABS: Anion Gap 13 mmol/L (10-20); BUN (Urea Nitrogen) 18 mg/dL (9.8-20.1); Calc. Creatinine Clearance 109 mL/min (70-130); Carbon Dioxide 37 mmol/L (22-29); Chloride 97 mmol/L (98-107); Estimated GFR 64; Glucose 70 mg/dL (70-105); Magnesium 1.8 mg/dL (1.6-2.6); Potassium 3.7 mmol/L (3.5-5.1); Sodium 143 mmol/L (136-145)
[2024-07-30 05:16] LABS: Anisocytosis SLIGHT = 6-15 cells HPF (0-5); Hypochromia SLIGHT = 6-15 cells HPF (0-5); Platelet Adequacy Comment Platelets Normal; Polychromasia SLIGHT = 2-3 cells HPF (0-2)
[2024-07-30 11:12] LABS: Magnesium 2.1 mg/dL (1.6-2.6)
[2024-07-30 15:38] LABS: Anion Gap 14 mmol/L (10-20); BUN (Urea Nitrogen) 19 mg/dL (9.8-20.1); Calc. Creatinine Clearance 125 mL/min (70-130); Calcium 8.5 mg/dL (7.8-10.44); Carbon Dioxide 34 mmol/L (22-29); Chloride 100 mmol/L (98-107); Estimated GFR 77; Glucose 57 mg/dL (70-105); Sodium 144 mmol/L (136-145)
[2024-07-30 17:19] VITALS: BMI 43.9
[2024-07-30] MEDS: AcetaZOLAMIDE 250 MG TAB PO SCH (17:30)
[2024-07-30] MEDS: AcetaZOLAMIDE 250 MG TAB ONE (17:37)
[2024-07-30 18:30] LABS: #Basophils 0.04 10x3/uL (0.0-0.2); %Basophils 0.8 % (0.0-1.0); %Eosinophils 2.5 % (0.0-10.0); %Lymphocytes 14.8 % (21.0-51.0); %Monocytes 9.5 % (0.0-10.0); %Neutrophils 71.8 % (42.0-75.0); Hematocrit 35.1 % (36.0-47.0); Hemoglobin 10.4 g/dL (12.0-16.0); Mean Corpuscular HGB CONC 29.6 g/dL (32.0-36.0); Mean Corpuscular Hemoglobin 28.1 pg (27.0-31.0); Mean Corpuscular Volume 94.9 fL (78.0-98.0); Platelet Count 406 10x3/uL (130-400); RBC Distribution Width 19.9 % (11.5-14.5)
[2024-07-31 06:23] LABS: #Basophils 0.05 10x3/uL (0.0-0.2); %Basophils 0.9 % (0.0-1.0); %Monocytes 12.8 % (0.0-10.0); Hematocrit 36.8 % (36.0-47.0); Hemoglobin 10.7 g/dL (12.0-16.0); Mean Corpuscular HGB CONC 29.1 g/dL (32.0-36.0); Mean Corpuscular Hemoglobin 26.8 pg (27.0-31.0); Mean Platelet Volume 9.4 fL (7.4-10.4); Platelet Count 408 10x3/uL (130-400); RBC Distribution Width 19.7 % (11.5-14.5)
[2024-07-31 06:47] LABS: Anion Gap 13 mmol/L (10-20); BUN (Urea Nitrogen) 19 mg/dL (9.8-20.1); Calc. Creatinine Clearance 96 mL/min (70-130); Calcium 8.2 mg/dL (7.8-10.44); Carbon Dioxide 36 mmol/L (22-29); Chloride 97 mmol/L (98-107); Estimated GFR 58; Glucose 76 mg/dL (70-105); Magnesium 2.1 mg/dL (1.6-2.6); Potassium 3.8 mmol/L (3.5-5.1); Sodium 142 mmol/L (136-145)
[2024-07-31] MEDS: AcetaZOLAMIDE 250 MG TAB PO SCH (09:37)
[2024-08-01 06:37] LABS: #Basophils 0.06 10x3/uL (0.0-0.2); %Eosinophils 2.9 % (0.0-10.0); %Lymphocytes 16.8 % (21.0-51.0); %Monocytes 11.5 % (0.0-10.0); %Neutrophils 67.5 % (42.0-75.0); Hematocrit 36.8 % (36.0-47.0); Hemoglobin 10.3 g/dL (12.0-16.0); Mean Corpuscular Hemoglobin 26.9 pg (27.0-31.0); Mean Corpuscular Volume 96.1 fL (78.0-98.0); Mean Platelet Volume 9.3 fL (7.4-10.4); Platelet Count 360 10x3/uL (130-400); RBC Distribution Width 19.6 % (11.5-14.5); Red Blood Cell (RBC) Count 3.83 mill/uL (4.20-5.40)
[2024-08-01 06:57] LABS: Anion Gap 13 mmol/L (10-20); BUN (Urea Nitrogen) 21 mg/dL (9.8-20.1); Calc. Creatinine Clearance 76 mL/min (70-130); Calcium 8.4 mg/dL (7.8-10.44); Carbon Dioxide 27 mmol/L (22-29); Chloride 101 mmol/L (98-107); Estimated GFR 44; Glucose 81 mg/dL (70-105); Magnesium 2.4 mg/dL (1.6-2.6); Potassium 4.2 mmol/L (3.5-5.1); Sodium 137 mmol/L (136-145)
[2024-08-01 07:03] LABS: Anisocytosis SLIGHT = 6-15 cells HPF (0-5); Burr Cells SLIGHT = 2-5 cells HPF (0-1); Hypochromia SLIGHT = 6-15 cells HPF (0-5); Platelet Adequacy Comment Platelets Normal; Polychromasia SLIGHT = 2-3 cells HPF (0-2)
[2024-08-02 05:07] LABS: Anion Gap 14 mmol/L (10-20); BUN (Urea Nitrogen) 24 mg/dL (9.8-20.1); Calc. Creatinine Clearance 69 mL/min (70-130); Calcium 8.3 mg/dL (7.8-10.44); Carbon Dioxide 26 mmol/L (22-29); Chloride 101 mmol/L (98-107); Estimated GFR 40; Glucose 76 mg/dL (70-105); Magnesium 2.4 mg/dL (1.6-2.6); Potassium 4.4 mmol/L (3.5-5.1); Sodium 137 mmol/L (136-145)
[2024-08-02 05:13] LABS: #Basophils 0.07 10x3/uL (0.0-0.2); %Basophils 0.9 % (0.0-1.0); %Eosinophils 2.7 % (0.0-10.0); %Lymphocytes 16.7 % (21.0-51.0); %Monocytes 11.8 % (0.0-10.0); %Neutrophils 67.5 % (42.0-75.0); Hematocrit 37.1 % (36.0-47.0); Hemoglobin 10.5 g/dL (12.0-16.0); Mean Corpuscular HGB CONC 28.3 g/dL (32.0-36.0); Mean Corpuscular Hemoglobin 26.8 pg (27.0-31.0); Mean Corpuscular Volume 94.6 fL (78.0-98.0); Mean Platelet Volume 9.4 fL (7.4-10.4); Platelet Count 361 10x3/uL (130-400); RBC Distribution Width 19.2 % (11.5-14.5); Red Blood Cell (RBC) Count 3.92 mill/uL (4.20-5.40)
[2024-08-02] MEDS: Pantoprazole 40 MG VIAL IVP SCH (22:26)
[2024-08-03 05:44] LABS: #Basophils 0.04 10x3/uL (0.0-0.2); %Basophils 0.7 % (0.0-1.0); %Eosinophils 3.6 % (0.0-10.0); %Lymphocytes 14.2 % (21.0-51.0); %Monocytes 14.5 % (0.0-10.0); %Neutrophils 66.3 % (42.0-75.0); Mean Corpuscular HGB CONC 28.9 g/dL (32.0-36.0); Mean Corpuscular Volume 93.4 fL (78.0-98.0); Mean Platelet Volume 9.5 fL (7.4-10.4); Platelet Count 387 10x3/uL (130-400); RBC Distribution Width 19.2 % (11.5-14.5); Red Blood Cell (RBC) Count 4.07 mill/uL (4.20-5.40)
[2024-08-03 06:07] LABS: Anion Gap 12 mmol/L (10-20); BUN (Urea Nitrogen) 24 mg/dL (9.8-20.1); Calc. Creatinine Clearance 89 mL/min (70-130); Calcium 8.6 mg/dL (7.8-10.44); Carbon Dioxide 28 mmol/L (22-29); Chloride 101 mmol/L (98-107); Estimated GFR 55; Glucose 77 mg/dL (70-105); Magnesium 2.5 mg/dL (1.6-2.6); Potassium 4.1 mmol/L (3.5-5.1); Sodium 137 mmol/L (136-145)
[2024-08-03 06:36] LABS: Anisocytosis SLIGHT = 6-15 cells HPF (0-5); Hypochromia SLIGHT = 6-15 cells HPF (0-5); Platelet Adequacy Comment Platelets Normal; Polychromasia SLIGHT = 2-3 cells HPF (0-2)
[2024-08-04] MEDS: Torsemide 20 MG TAB PO SCH (06:45)
[2024-08-04 06:54] LABS: Anion Gap 12 mmol/L (10-20); BUN (Urea Nitrogen) 24 mg/dL (9.8-20.1); Calc. Creatinine Clearance 97 mL/min (70-130); Calcium 8.5 mg/dL (7.8-10.44); Carbon Dioxide 28 mmol/L (22-29); Chloride 104 mmol/L (98-107); Estimated GFR 61; Glucose 80 mg/dL (70-105); Magnesium 2.6 mg/dL (1.6-2.6); Potassium 4.5 mmol/L (3.5-5.1); Sodium 139 mmol/L (136-145)
[2024-08-04 07:28] LABS: #Basophils 0.05 10x3/uL (0.0-0.2); %Basophils 0.9 % (0.0-1.0); %Eosinophils 3.5 % (0.0-10.0); %Lymphocytes 18.2 % (21.0-51.0); %Monocytes 11.5 % (0.0-10.0); %Neutrophils 65.7 % (42.0-75.0); Hematocrit 38.2 % (36.0-47.0); Mean Corpuscular HGB CONC 28.8 g/dL (32.0-36.0); Mean Corpuscular Hemoglobin 26.7 pg (27.0-31.0); Mean Corpuscular Volume 92.7 fL (78.0-98.0); Mean Platelet Volume 9.3 fL (7.4-10.4); Platelet Count 381 10x3/uL (130-400); RBC Distribution Width 19.2 % (11.5-14.5); Red Blood Cell (RBC) Count 4.12 mill/uL (4.20-5.40)
[2024-08-04 11:30] VITALS: TEMP 98.2
[2024-08-04] MEDS: Activase 2 MG VIAL CATH SCH (14:19)
[2024-08-04 16:25] VITALS: BP 124/70
== END 2024-08-04 16:05 | disposition home health service (06) | DRG 291 ==
LOC: ERS 13:49 → ERHOLD 16:21 → IMCU/EMU 21:52 → 2NO 07-26 15:18
PROVIDERS: ADMIT Family Medicine; ATTEND Family Medicine
DX: I11.0 Hypertensive heart disease with heart failure (principal); I50.43 Acute on chronic combined systolic (congestive) and diastolic (congestive) heart failure; J96.21 Acute and chronic respiratory failure with hypoxia; N17.9 Acute kidney failure, unspecified; Z68.41 Body mass index [BMI] 40.0-44.9, adult; G47.33 Obstructive sleep apnea (adult) (pediatric); E11.9 Type 2 diabetes mellitus without complications; E66.01 Morbid (severe) obesity due to excess calories; E87.6 Hypokalemia; Z66 Do not resuscitate; K21.9 Gastro-esophageal reflux disease without esophagitis; D64.9 Anemia, unspecified; I42.8 Other cardiomyopathies; Z95.810 Presence of automatic (implantable) cardiac defibrillator; Z98.84 Bariatric surgery status; Z87.891 Personal history of nicotine dependence; Z86.711 Personal history of pulmonary embolism; Z86.718 Personal history of other venous thrombosis and embolism; Z99.81 Dependence on supplemental oxygen; Z88.0 Allergy status to penicillin; Z88.8 Allergy status to other drugs, medicaments and biological substances; Z79.01 Long term (current) use of anticoagulants; Z79.899 Other long term (current) drug therapy; Z79.82 Long term (current) use of aspirin; Z79.52 Long term (current) use of systemic steroids; Z79.84 Long term (current) use of oral hypoglycemic drugs; Z79.51 Long term (current) use of inhaled steroids
CPT/HCPCS: 36415; 36416; 71045; 71250; 80048; 80053; 82805; 83605; 83735; 83880; 84145; 84443; 84484; 85025; 87040; 90656; 93005; 94640; 94660; 94760; 96374; 96375; J1940; J2260; J2470; J2543; J2997; J3480; J3490; J7620